=== PATIENT | female | born 1960 | race Caucasian/White ===

== ENCOUNTER → 2018-04-10 08:58 | Outpatient (CLI) | payer OTHER, SELFPAY ==
[2018-04-10 09:52] LABS: Add Manual Diff / Slide Review NO; Eosinophils Percent Auto 2.8 % (2-4); Hematocrit 38.7 % (36-46); Hemoglobin 12.6 g/dL (12.0-16.0); Lymphocytes Percent Auto 18.8 % (25-40); Mean Corpuscular HGB Conc 32.5 % (30-36); Mean Corpuscular Hemoglobin 23.7 PG (26-34); Mean Corpuscular Volume 72.9 fL (80-100); Monocytes Percent Auto 6.4 % (3-14); Neutrophils Absolute Auto 7100 /uL (3000-5900); Platelet Count 230 X10^3/uL (150-400); Red Blood Cell Count 5.31 X10^6/uL (4.0-5.2); Red Cell Distribution Width 16.8 % (11.6-14.8)
[2018-04-10 10:17] LABS: Alanine Aminotransferase 39 IU/L (9-52); Albumin 4.2 g/dL (3.5-5.0); Albumin Globulin Ratio 1.4 (1.0-2.8); Alkaline Phosphatase 103 U/L (38-126); Aspartate Aminotransferase 29 IU/L (14-36); BUN Creatinine Ratio 21.4 (6-22); Blood Urea Nitrogen 15 mg/dL (7-17); Calcium 7.4 mg/dL (8.4-10.2); Carbon Dioxide 27 mmol/L (22-32); Chloride 101 mmol/L (98-107); Estimated Glomerular Filt Rate > 60.0 mL/min (>60); Glucose 95 mg/dL (70-100); HEMOLYSIS < 15 (0-50); Potassium 3.7 mmol/L (3.4-5.1); Sodium 143 mmol/L (137-145); Total Protein 7.2 g/dL (6.3-8.2)
== END ==
PROVIDERS: Visit Provider Podiatrist
DX: Z01.818 Encounter for other preprocedural examination (principal)
CPT/HCPCS: 36415; 80053; 85025; 93005

== ENCOUNTER 2018-04-26 10:40 | Day surgery (SDC) | payer OTHER, SELFPAY ==
[2018-04-16 08:20] VITALS: BMI 33.3
[2018-04-26] VITALS (7 sets, daily range): BP systolic 113–161; BP diastolic 77–97; PULSE 69–76; RESP 14–22; TEMP 36.4–37.2; O2SAT 95–99; BMI 33.3
[2018-04-26] MEDS: LACTATED RINGERS 1,000 ML 42 ML IV (11:30)
--- NOTE | 2018-04-26 13:01 | PM.OP.1 ---
Procedure & Clinicians Procedure: Gastroc recession, left Same procedure as scheduled: Yes Indications: Painful equinus, plantar fasciitis Surgeon: Moe Fernandez Click Yes if Unassisted: Yes Anesthesia Type: General, Peripheral nerve block (popliteal block by anesthesia) and Local Operative Notes Closure Type: primary Specimen(s): none sent Applied: other (BK boot) Estimated Blood Loss (mL): 5 Procedure in detail: Operation: The patient was taken from the day surgery area back to the OR via gurney after having received a popliteal block on the left leg by anesthesia. General anesthesia was then induced. The patient was then rolled into a prone position on the OR table padded accordingly. A thigh tourniquet was placed, however, it was not utilized throughout the case. The left lower extremity was then prepped and draped in the usual sterile fashion from toes to knee. Procedure: Gastrocnemius recession, left (24090) Attention was directed toward the posterior aspect of the left distal Achilles. A longitudinal incision was placed just medial to midline, starting approximately 10 cm proximal to the Achilles insertion. Sharp and blunt dissection were utilized to the subcutaneous tissue layers, taking care to retract all vital structures and cauterized as necessary for adequate hemostasis. Once the paratenon layer was identified it was longitudinally incised. This was carefully elevated off of the underlying gastrocnemius aponeurosis. A modified [id number] slide procedure was then performed, releasing the medial and lateral 1/3 of the width of the tendon proximally, and then the central 1/3 distally. The knee was then extended in the ankle joint dorsiflexed to accommodate approximately 1-2 cm slide, with ankle dorsiflexion approximating +10? on the table. The wound was aggressively irrigated with antibiotic solution. The adjacent tendon arms were repaired with 2 Vicryl. The paratenon/mesotenon layer was then closed with a running 3 0 Vicryl. The subcu was apposed with a running 3 0 Vicryl, and the skin closed with a running subcuticular stitch of 4 0 Vicryl. Steri-Strips were placed, a postop block of 20 cc 0.5% Marcaine plain was administered around the surgical site. A light gauze compression bandage was then applied. Patient was placed then into a BK removable cast boot for protection. The patient tolerated the procedure and anesthesia without any apparent complications. She left the operating room with vital signs stable and digital perfusion intact. She will be nonweightbearing for the next week on crutches. Will be followed up in the [place] office next week. Complications: none Condition: stable Disposition: PACU Plan for aftercare: FU in Dr. Fernandez's office in one week. Appointment already has been made.
--- NOTE | 2018-04-26 13:08 | P.OP_ITS ---
Procedure & Clinicians Procedure: Gastroc recession, left Same procedure as scheduled: Yes Indications: Painful equinus, plantar fasciitis Surgeon: Moe Fernandez Click Yes if Unassisted: Yes Anesthesia Type: General, Peripheral nerve block (popliteal block by anesthesia ) and Local Operative Notes Closure Type: primary Specimen(s): none sent Applied: other (BK boot) Estimated Blood Loss (mL): 5 Procedure in detail: Operation: The patient was taken from the day surgery area back to the OR via gurney after having received a popliteal block on the left leg by anesthesia. General anesthesia was then induced. The patient was then rolled into a prone position on the OR table padded accordingly. A thigh tourniquet was placed, however, it was not utilized throughout the case. The left lower extremity was then prepped and draped in the usual sterile fashion from toes to knee. Procedure: Gastrocnemius recession, left (76133) Attention was directed toward the posterior aspect of the left distal Achilles. A longitudinal incision was placed just medial to midline, starting approximately 10 cm proximal to the Achilles insertion. Sharp and blunt dissection were utilized to the subcutaneous tissue layers, taking care to retract all vital structures and cauterized as necessary for adequate hemostasis. Once the paratenon layer was identified it was longitudinally incised. This was carefully elevated off of the underlying gastrocnemius aponeurosis. A modified kffniy-[id number] slide procedure was then performed, releasing the medial and lateral 1/3 of the width of the tendon proximally, and then the central 1/3 distally. The knee was then extended in the ankle joint dorsiflexed to accommodate approximately 1-2 cm slide, with ankle dorsiflexion approximating +10? on the table. The wound was aggressively irrigated with antibiotic solution. The adjacent tendon arms were repaired with 2 Vicryl. The paratenon/mesotenon layer was then closed with a running 3 0 Vicryl. The subcu was apposed with a running 3 0 Vicryl, and the skin closed with a running subcuticular stitch of 4 0 Vicryl. Steri-Strips were placed, a postop block of 20 cc 0.5% Marcaine plain was administered around the surgical site. A light gauze compression bandage was then applied. Patient was placed then into a BK removable cast boot for protection. The patient tolerated the procedure and anesthesia without any apparent complications. She left the operating room with vital signs stable and digital perfusion intact. She will be nonweightbearing for the next week on crutches. Will be followed up in the [place] office next week. Complications: none Condition: stable Disposition: PACU Plan for aftercare: FU in Dr. Fernandez's office in one week. Appointment already has been made.
--- NOTE | 2018-04-26 13:29 | SUR.PREOP ---
Block start time [1312] . Monitoring initiated and maintained throughout procedure. Oxygen and medications given per anesthesiologist instructions. Patient remained stable throughout procedure, no adverse reactions noted. Block end time [1321].
[2018-04-26] MEDS: CEFAZOLIN 2 GM/100 ML FROZ.PIGGY IV (13:30)
--- NOTE | 2018-04-26 14:00 | SUR.OPER ---
Prone on padded OR bed, head in foam head support, gel chest rolls, gel pad under right knee, left leg draped free, toes free of pressure, arms secured on padded arm boards bent toward head of bed. Safety belt at back
--- NOTE | 2018-04-26 14:13 | PM.PROC.1 ---
Procedures Date/Time Date of procedure: 04/26/18 Time of procedure: 13:10 General Procedure description: Ultrasound guided popliteal sciatic nerve block for post op pain control after left gastroc lengthening by Dr. Fernandez. Risk and benefits of procedure discussed with patient. ASA monitoring applied to patient. Oxygen given via nasal cannula. 0.5 mg Versed and 50 mcg fentanyl given for procedural sedation. Skin site was prepped with chlorhexidine and allowed to fully dry. Sterile gloves, mask, hat and probe cover were used to maintain sterility. 2% lidocaine and 30ga needle was used to make a small skin wheal at needle insertion site. Under ultrasound guidance, a 21ga 100mm [place] needle was directed near the division of the sciatic nerve into tibial and peroneal nerve in the popliteal fossa (lateral approach). Patient reported no parasthesias. After negative aspiration, 20 mL 0.5% ropivicaine and 10mg dexamethasone were injected around sciatic nerve. Patient tolerated procedure well.
== END 2018-04-26 16:00 | disposition home or self-care (01) ==
PROVIDERS: Visit Provider Podiatrist
PROC: (CPT 27687; principal; 2018-04-26 12:30)
DX: M72.2 Plantar fascial fibromatosis (principal); M21.6X2 Other acquired deformities of left foot; G89.18 Other acute postprocedural pain
CPT/HCPCS: 27687; 64450; J0330; J0690; J1100; J1885; J2250; J2405; J2704; J3010

== ENCOUNTER 2021-01-12 17:34 | Emergency (ER) | payer OTHER, SELFPAY ==
[2021-01-12 17:46] VITALS: BP 182/86; PULSE 83; RESP 18; TEMP 36.7; O2SAT 98
--- NOTE | 2021-01-12 17:48 | DI.US.S_ITS ---
PROCEDURE: US PERIPH VENOUS LOW EXTREM RT INDICATIONS: rt lower leg swelling/pain, hx of dvt TECHNIQUE: Real-time imaging, as well as color and pulse Doppler interrogation, were performed of the lower extremity deep veins from the inguinal ligament to the popliteal fossa. COMPARISON: None. FINDINGS: The common femoral, femoral and popliteal veins are normally compressible, and free of intraluminal thrombus. Color and pulse Doppler demonstrate normal phasic intraluminal flow. There is normal augmentation response to distal compression maneuver. IMPRESSION: Negative for deep venous thrombosis. Dictated by: Mauro Rivera M.D. on 01/12/2021 at 17:19 Approved by: Mauro Rivera M.D. on 01/12/2021 at 17:20
--- NOTE | 2021-01-12 17:58 | ED.LOWEXIN ---
HPI - Extremity Injury (Lower) General Chief Complaint: Extremity Injury, Lower Stated Complaint: rt leg swelling, thinks blood clot Time Seen by Provider: 01/12/21 17:54 Source: patient Mode of arrival: Ambulatory Limitations: no limitations History of Present Illness HPI Narrative: 60-year-old female nonsmoker with a history of left lower extremity DVT after air travel a few years ago presents with a chief complaint of mild pain and swelling in her right calf in the absence of redness, warmth or injury. She has had no fever or chills. She states that she recently had a long distance flight and despite taking low-dose aspirin in preparation for the flight she has developed some swelling in her calf. She denies any pain in her thigh. She has had no chest pain or shortness of breath. She is not dizzy nor weak or lightheaded. Severity: mild Relieving factors: rest Exacerbating factors: movement and palpation Associated symptoms: swelling Other symptoms: none Related Data Home Medications Medication Instructions Recorded Confirmed albuterol sulfate [ProAir HFA] 1 puff INHALATION Q4-6H PRN 04/16/18 04/26/18 atorvastatin 10 mg PO DAILY 04/16/18 04/26/18 diltiazem HCl 240 mg PO DAILY 04/16/18 04/26/18 fexofenadine [Nallely Allergy] 180 mg PO DAILY 04/16/18 04/26/18 fluticasone propionate [Flonase 1 spray INTRANASAL DAILY 04/16/18 04/26/18 Allergy Relief] hydrochlorothiazide 12.5 mg PO DAILY 04/16/18 04/26/18 hydrocodone-acetaminophen 1 - 2 tab PO Q4-6H PRN 04/16/18 04/16/18 scopolamine base 1 patch TRANSDERMAL Q3D PRN 04/16/18 04/26/18 Allergies Allergy/AdvReac Type Severity Reaction Status Date / Time No Known Drug Allergies Allergy Verified 04/25/18 16:21 Review of Systems Constitutional Constitutional: Denies chills, Denies fatigue, Denies fever(s), Denies frequent falls, Denies lethargy and Denies weakness Eyes Eyes: Denies change in vision, Denies eye discharge, Denies irritation and Denies loss of vision ENT Ears, Nose, Mouth, and Throat: Denies change in voice, Denies dizziness, Denies neck pain, Denies sore throat and Denies throat swelling Cardiovascular Cardiovascular: Denies chest pain, Denies irregular heart rhythm, Reports leg edema, Denies lightheadedness, Denies palpitations, Denies dyspnea, Denies dyspnea on exertion and Denies orthopnea Respiratory Respiratory: Denies cough, Denies dyspnea, Denies dyspnea on exertion and Denies wheezing Gastrointestinal Gastrointestinal: Denies abdominal pain, Denies change in bowel habits, Denies diarrhea, Denies nausea and Denies vomiting Musculoskeletal Musculoskeletal: Denies neck pain and Denies numbness Integumentary/Breasts Skin/Breast: Denies pruritus, Denies erythema, Denies rash, Reports skin pain, Reports skin swelling and Denies wounds Neurologic Neurologic: Denies behavioral changes, Denies confusion, Denies dizziness, Denies frequent falls, Denies loss of vision, Denies numbness and Denies weakness Psychiatric Psychiatric: Denies anxiety, Denies behavioral changes, Denies confusion, Denies depression, Denies homicidal ideation and Denies suicidal ideation Endocrine Endocrine: Denies fatigue, Denies flushing and Denies palpitations Hematologic/Lymphatic Hematologic/Lymphatic: Denies easy bruising Allergic/Immunologic Allergic/Immunologic: Denies urticaria, Denies throat swelling and Denies wheezing Patient History Medical History DVT (deep vein thrombosis) in High cholesterol HTN (hypertension) Hypothyroid Left wrist fracture Osteoarthritis Surgical History History of arthroscopic knee surgery History of tonsillectomy and adenoidectomy Hx of cholecystectomy Social History household members: spouse Smoking Status: Never smoker alcohol intake: current Smoking Status: Never smoker Substance Use Type: does not use Exam Narrative Exam Narrative: GEN: AOx3 and in mild distress EYES: Pupils are equal, round, and reactive to light and accommodation. Extraoccular muscles are intact bilaterally. There is no subconjunctival hemorrhage or exudate. CHEST: Lungs are clear to auscultation bilaterally and free of wheezes, rales, or rhonchi. Heart rate is regular rhythm, there are no murmurs, clicks, rubs, or gallops. There is no chest wall tenderness. ABD: Abdomen is soft and nontender. There is no guarding or rebound. Bowel sounds are normal in all 4 quadrants. There is no mass or organomegaly. EXT: Mild right calf swelling a, no significant pain on palpation, redness, warmth. No medial thigh pain or tenderness Full painless ROM of all extremities with no loss of sensation or strength. SKIN: Warm, pink, and dry. No erythema or rash Initial Vital Signs Initial Vital Signs: Vital Signs Temperature 98.1 F 01/12/21 17:46 Pulse Rate 83 01/12/21 17:46 Respiratory Rate 18 01/12/21 17:46 Blood Pressure 182/86 H 01/12/21 17:46 Pulse Oximetry 98 01/12/21 17:46 Course Orders Ordered: ED Orders 01/12/21 17:48 US perip venous low extrem rt Stat Vital Signs Vital signs: Vital Signs - 8 hr 01/12/21 17:46 Temperature 98.1 F Pulse Rate 83 Respiratory Rate 18 Blood Pressure 182/86 H Pulse Oximetry 98 MDM - Extremity Injury (Lower) Imaging Data US - DVT: Radiologist's Impression: [address] [id number] ReportSigned Patient: Winnie Real KMR#: [id number]: 1960Acct:[id number]/Sex: 60 / FDate of Service: 01/12/21Loc: EDAccession Number: [id number] Procedure: [facility] venous low extrem rt Ordering Provider: Monet Rosa D.O. PROCEDURE: PERIP VENOUS LOW EXTREM RT INDICATIONS: rt lower leg swelling/pain, hx of dvt TECHNIQUE: Real-time imaging, as well as color and pulse Doppler interrogation, were performed of the lower extremity deep veins from the inguinal ligament to the popliteal fossa. COMPARISON: None. FINDINGS: The common femoral, femoral and popliteal veins are normally compressible, and free of intraluminal thrombus. Color and pulse Doppler demonstrate normal phasic intraluminal flow. There is normal augmentation response to distal compression maneuver. IMPRESSION: Negative for deep venous thrombosis. Dictated by: Mauro Rivera M.D. on 01/12/2021 at 17:19 Approved by: Mauro Rivera M.D. on 01/12/2021 at 17:20 [facility] Narrative Medical decision making narrative: Patient with prior DVTs concerned that she has another after developing some right calf swelling after a flight. There is no redness, warmth, injury or fever. Ultrasound is negative for DVT. Infection considered but thought unlikely given lack of redness, warmth, pain on palpation or fever. There is a possibility of a small distal DVT that did not show up on the ultrasound, we discussed elevating her leg, use of compression socks, initiation of aspirin, follow-up for repeat ultrasound in 5-7 days. She understands return precautions and has had questions answered to her apparent satisfaction Discharge Plan Departure Patient Disposition: Home Clinical Impression: Right calf pain Instructions: DI for Leg Pain Activity Restrictions/Additional Instructions: *You have been diagnosed with [right calf pain, your ultrasound is reassuring and does not demonstrate DVT] *What to do: *Take medications as directed: Please start taking a baby aspirin daily and be sure to elevate your calf as much as possible *Follow up with your primary care provider in 5-7 days, call for an appointment. Let them know you were seen in the Emergency Department and that we ask that you be seen in follow up. We typically would encourage a repeat ultrasound at that point to rule out the evolution of an underlying clot. *Return to ER if you should have any new, worsening or concerning symptoms, such as [increasing pain, redness, swelling, fever, chills, chest pain or shortness of breath] Prescriptions: No Action atorvastatin 10 mg Tablet 10 mg PO DAILY RF: 0 hydrocodone-acetaminophen 5-325 mg Tablet 1 - 2 tab PO Q4-6H PRN (Reason: pain) RF: 0 diltiazem HCl 240 mg Capsule,Extended Release 24 Hr 240 mg PO DAILY RF: 0 fexofenadine [Nallely Allergy] 180 mg Tablet 180 mg PO DAILY RF: 0 hydrochlorothiazide 12.5 mg Capsule 12.5 mg PO DAILY RF: 0 scopolamine base 1 mg over 3 days Patch 3 Day 1 patch TRANSDERMAL Q3D PRN (Reason: Nausea) RF: 0 albuterol sulfate [ProAir HFA] 90 mcg/actuation Hfa Aerosol Inhaler 1 puff INHALATION Q4-6H PRN (Reason: SOB) RF: 0 fluticasone propionate [Flonase Allergy Relief] 50 mcg/actuation [place],Suspension 1 spray INTRANASAL DAILY RF: 0 Referrals: Sandy Powell PA-C [Primary Care Provider] -
== END 2021-01-12 21:13 | disposition home or self-care (01) ==
PROVIDERS: Emergency Provider Emergency Medicine; PCP Physician Assistant Medical
DX: M79.661 Pain in right lower leg (principal)
CPT/HCPCS: 93971; 99283

== ENCOUNTER 2021-01-14 12:22 | Emergency (ER) | payer BC, OTHER, SELFPAY ==
[2021-01-14 12:28] VITALS: BP 180/88; PULSE 82; RESP 23; TEMP 36.6; O2SAT 97; BMI 34.0
[2021-01-14 12:30] VITALS: PULSE 79; O2SAT 97
[2021-01-14 12:49] VITALS: BP 180/77; PULSE 67; RESP 29; O2SAT 97
--- NOTE | 2021-01-14 12:53 | ED_ITS ---
HPI - General Adult General Chief complaint: Hypertension Stated complaint: elevated blood pressure, since yesterday Time Seen by Provider: 01/14/21 12:53 Source: patient Mode of arrival: Ambulatory Limitations: no limitations History of Present Illness HPI narrative: 60-year-old female here for evaluation of elevated blood pressure. She does have a history of high blood pressure. She has been taking her medications as directed and actually took an extra dose of her hydrochlorothiazide today. This made a total of 25 mg of hydrochlorothiazide. She was recently seen in this emergency department for right lower extremity swelling. She has had a DVT in the past. She states the workup for that was unremarkable. The pain in the right lower extremity has resolved however she still does have some swelling. She is not having any chest pain or shortness of breath. Yesterday started feeling somewhat lightheaded and took her blood pressure and was elevated. She took multiple times yesterday and even multiple times today and was still elevated so she came in the emergency department for evaluated Related Data Home Medications Medication Instructions Recorded Confirmed albuterol sulfate [ProAir HFA] 1 puff INHALATION Q4-6H PRN 04/16/18 04/26/18 atorvastatin 10 mg PO DAILY 04/16/18 04/26/18 diltiazem HCl 240 mg PO DAILY 04/16/18 04/26/18 fexofenadine [Nallely Allergy] 180 mg PO DAILY 04/16/18 04/26/18 fluticasone propionate [Flonase 1 spray INTRANASAL DAILY 04/16/18 04/26/18 Allergy Relief] hydrochlorothiazide 12.5 mg PO DAILY 04/16/18 04/26/18 hydrocodone-acetaminophen 1 - 2 tab PO Q4-6H PRN 04/16/18 04/16/18 scopolamine base 1 patch TRANSDERMAL Q3D PRN 04/16/18 04/26/18 Allergies Allergy/AdvReac Type Severity Reaction Status Date / Time No Known Drug Allergies Allergy Verified 01/14/21 12:34 Review of Systems Constitutional Constitutional: Denies fever(s) and Denies headache(s) Comments: Lightheaded Eyes Eyes: Denies blurry vision and Denies change in vision ENT Ears, Nose, Mouth, and Throat: Denies headache(s) Cardiovascular Cardiovascular: Denies chest pain and Denies dyspnea Respiratory Respiratory: Denies dyspnea Gastrointestinal Gastrointestinal: Denies abdominal pain, Denies nausea and Denies vomiting Genitourinary Genitourinary: Denies dysuria Genitourinary: Denies dysuria Musculoskeletal Musculoskeletal: Denies arthralgias and Denies myalgias Integumentary/Breasts Skin/Breast: Denies lesions and Denies rash Neurologic Neurologic: Denies behavioral changes and Denies headache(s) Psychiatric Psychiatric: Denies behavioral changes Hematologic/Lymphatic On Anticoagulants: No Allergic/Immunologic Allergic/Immunologic: Denies urticaria Patient History Medical History DVT (deep vein thrombosis) in High cholesterol HTN (hypertension) Hypothyroid Left wrist fracture Osteoarthritis Surgical History History of arthroscopic knee surgery History of tonsillectomy and adenoidectomy Hx of cholecystectomy Social History household members: spouse Smoking Status: Never smoker alcohol intake: current Smoking Status: Never smoker Substance Use Type: does not use Exam Initial Vital Signs Initial Vital Signs: Vital Signs Temperature 97.9 F 01/14/21 12:28 Pulse Rate 82 01/14/21 12:28 Respiratory Rate 23 01/14/21 12:28 Blood Pressure 180/88 H 01/14/21 12:28 Pulse Oximetry 97 01/14/21 12:28 Const General: cooperative and comfortable Limitations: mental status not altered HENMT Head: normal to inspection and normocephalic Resp Effort & Inspection: normal respiratory effort Auscultation: clear to auscultation bilaterally Cardio Rate: regular rate Rhythm: regular rhythm GI Inspection: non-distended Palpation: soft and No tender Skin Lesions: no lesions Rashes: no rashes Neuro General: patient alert, patient awake and patient oriented x3 Cognition: normal cognition Speech: speech normal Gait: normal gait Extrem General: normal to inspection and capillary refill normal Psych Appearance: grossly normal and well kempt Course Orders Ordered: ED Orders 01/14/21 12:35 EKG-12 Lead Stat 01/14/21 12:53 Complete Blood Count AUTO DIFF Stat Comprehensive Metabolic Panel Stat Lipase Stat NT-proBNP (BNP-Adult 18+) Stat Troponin & CK Cardiac Panel Stat 01/14/21 12:54 XR chest 1V Stat Vital Signs Vital signs: Vital Signs - 8 hr 01/14/21 12:28 01/14/21 12:30 01/14/21 12:49 Temperature 97.9 F Pulse Rate 82 79 67 Respiratory Rate 23 29 H Blood Pressure 180/88 H 180/77 H Pulse Oximetry 97 97 97 01/14/21 13:00 01/14/21 13:30 01/14/21 14:00 Temperature Pulse Rate 64 66 64 Respiratory Rate 22 27 H 21 Blood Pressure Pulse Oximetry 95 93 93 Medical Decision Making Lab Data Lab results reviewed: Yes I reviewed the patient's lab results. Result diagrams: 01/14/21 12:53 01/14/21 12:53 Labs: Lab Results 01/14/21 01/14/21 Range/Units 12:53 12:53 WBC 9.2 (4.5-11.0) X10^3/uL RBC 5.32 H (4.0-5.2) X10^6/uL Hgb 13.2 (12.0-16.0) g/dL Hct 40.6 (36-46) % MCV 76.4 L (80-100) fL MCH 24.8 L (26-34) PG MCHC 32.5 (30-36) % RDW 15.9 H (11.6-14.8) % Plt Count 233 (150-400) X10^3/uL Neut % (Auto) 65.2 (50-75) % Lymph % (Auto) 23.1 L (25-40) % [place] % (Auto) 7.7 (3-14) % Eos % (Auto) 2.9 (2-4) % Baso % (Auto) 1.1 (0-2) % Neut # (Auto) 6000 (8633-6786) /uL Lymph # (Auto) 2100 (7204-7166) /uL [place] # (Auto) 700 (0-900) /uL Eos # (Auto) 300 (0-450) /uL Baso # (Auto) 100 (0-100) /uL Sodium 140 (137-145) mmol/L Potassium 3.3 L (3.4-5.1) mmol/L Chloride 102 (98-107) mmol/L Carbon Dioxide 28 (22-32) mmol/L BUN 13 (7-17) mg/dL Creatinine 0.74 (0.52-1.04) mg/dL Estimated GFR > 60.0 (>60) mL/min BUN/Creatinine Ratio 17.6 (6-22) Glucose 109 H (70-100) mg/dL Calcium 7.8 L (8.4-10.2) mg/dL Total Bilirubin 0.9 (0.2-1.3) mg/dL AST 32 (14-36) IU/L ALT 31 (<35) IU/L Alkaline Phosphatase 131 H (38-126) U/L Total Creatine Kinase 104 (30-135) U/L CK-MB (CK-2) 0.27 (<2.37) ng/mL CK-MB (CK-2) Rel Index 0.3 L (1.5-5.0) % Troponin I < 0.012 (0.01-0.034) ng/mL NT-Pro-B Natriuret Pep 92 (<125) pg/mL Total Protein 7.6 (6.3-8.2) g/dL Albumin 4.5 (3.5-5.0) g/dL Globulin 3.1 (1.7-4.1) g/dL Albumin/Globulin Ratio 1.5 (1.0-2.8) Lipase 62 (23-300) U/L Imaging Data Chest x-ray: Radiologist's Impression: [address] [id number] ReportSigned Patient: Winnie Real KMR#: [id number]: 1960Acct:[id number]/Sex: 60 / FDate of Service: 01/14/21Loc: EDAccession Number: [id number] Procedure: XR chest 1V Ordering Provider: Chavo Rivera D.O. PROCEDURE: XR CHEST 1V INDICATIONS: Hypertension shortness of breath TECHNIQUE: One view of the chest was acquired. COMPARISON: None. FINDINGS: Surgical changes and devices: None. Lungs and pleura: Lungs are clear. No pleural effusions or pneumothorax. Mediastinum: Mediastinal contours appear normal. Heart size is enlarged. Bones and chest wall: No suspicious bony lesions. Overlying soft tissues appear unremarkable. IMPRESSION: No acute cardiopulmonary pathology. Dictated by: Radhames Lim M.D. on 01/14/2021 at 13:28 Approved by: Radhames Lim M.D. on 01/14/2021 at 13:28 ECG Data Attestation: I personally reviewed and interpreted this ECG as follows: Prior ECG tracings: not available for review Interpretation: Sinus rhythm Ventricular rate is 64 Normal axis Normal QRS Normal QTC No ST T wave changes MDM Narrative Medical decision making narrative: Labs EKG chest x-ray all unremarkable. There are no signs of any end-organ dysfunction from her high blood pressure. I discussed blood pressure with the patient. We did discuss things to return to the emergency department for. Discussed how she should take her blood pressure at home. She is going to contact her primary provider for follow-up. She will take an extra dose of her hydrochlorothiazide as needed. I feel patient be sa chung discharged home without further workup here in the ER. She expressed understanding and agreement this plan. Discharge Plan Departure Patient Disposition: Home Clinical Impression: Hypertension Instructions: DI for High Blood Pressure Activity Restrictions/Additional Instructions: Continue to take your blood pressure as directed. Continue all of your medications as directed as well. Take your blood pressure at home like we discussed. Return to the emergency department for any new or worsening symptoms Prescriptions: No Action atorvastatin 10 mg Tablet 10 mg PO DAILY RF: 0 hydrocodone-acetaminophen 5-325 mg Tablet 1 - 2 tab PO Q4-6H PRN (Reason: pain) RF: 0 diltiazem HCl 240 mg Capsule,Extended Release 24 Hr 240 mg PO DAILY RF: 0 fexofenadine [Nallely Allergy] 180 mg Tablet 180 mg PO DAILY RF: 0 hydrochlorothiazide 12.5 mg Capsule 12.5 mg PO DAILY RF: 0 scopolamine base 1 mg over 3 days Patch 3 Day 1 patch TRANSDERMAL Q3D PRN (Reason: Nausea) RF: 0 albuterol sulfate [ProAir HFA] 90 mcg/actuation Hfa Aerosol Inhaler 1 puff INHALATION Q4-6H PRN (Reason: SOB) RF: 0 fluticasone propionate [Flonase Allergy Relief] 50 mcg/actuation [place] 1 spray INTRANASAL DAILY RF: 0 Referrals: Sandy Powell PA-C [Primary Care Provider] -
--- NOTE | 2021-01-14 12:57 | PC.NURSE ---
pt reports feeling like her BP was high yesterday around noon. has been keeping a log of readings. called NATALIA Powell who advised her to be seen in ED. Takes HCTZ 12.5mg and decided to take a 2nd tab this morning to see if it would improve her BP. Pt concerned for her diastolic being over 110-120. HR 60 NSR. Has been experiencing some R calf swelling as well and has US R/O DVT. Swelling appears minimal and pt states the pain in her calf has gone away. denies CP, SOB, NVD. IV placed and labs drawn. awaiting further MD assessment.
[2021-01-14 13:00] VITALS: PULSE 64; RESP 22; O2SAT 95
[2021-01-14 13:02] LABS: Add Manual Diff / Slide Review NO; Basophils Absolute Auto 100 /uL (0-100); Basophils Percent Auto 1.1 % (0-2); Eosinophils Absolute Auto 300 /uL (0-450); Eosinophils Percent Auto 2.9 % (2-4); Hematocrit 40.6 % (36-46); Hemoglobin 13.2 g/dL (12.0-16.0); Lymphocytes Absolute Auto 2100 /uL (1100-4500); Lymphocytes Percent Auto 23.1 % (25-40); Mean Corpuscular HGB Conc 32.5 % (30-36); Mean Corpuscular Hemoglobin 24.8 PG (26-34); Mean Corpuscular Volume 76.4 fL (80-100); Monocytes Absolute Auto 700 /uL (0-900); Monocytes Percent Auto 7.7 % (3-14); Neutrophils Absolute Auto 6000 /uL (1500-7000); Neutrophils Percent Auto 65.2 % (50-75); Platelet Count 233 X10^3/uL (150-400); Red Blood Cell Count 5.32 X10^6/uL (4.0-5.2); Red Cell Distribution Width 15.9 % (11.6-14.8); White Blood Cell Count 9.2 X10^3/uL (4.5-11.0)
[2021-01-14 13:20] LABS: Alanine Aminotransferase 31 IU/L (<35); Albumin 4.5 g/dL (3.5-5.0); Albumin Globulin Ratio 1.5 (1.0-2.8); Alkaline Phosphatase 131 U/L (38-126); Aspartate Aminotransferase 32 IU/L (14-36); BUN Creatinine Ratio 17.6 (6-22); Bilirubin Total 0.9 mg/dL (0.2-1.3); Blood Urea Nitrogen 13 mg/dL (7-17); Calcium 7.8 mg/dL (8.4-10.2); Carbon Dioxide 28 mmol/L (22-32); Chloride 102 mmol/L (98-107); Creatine Kinase 104 U/L (30-135); Estimated Glomerular Filt Rate > 60.0 mL/min (>60); Globulin 3.1 g/dL (1.7-4.1); Glucose 109 mg/dL (70-100); HEMOLYSIS < 15 (0-50); Lipase 62 U/L (23-300); Potassium 3.3 mmol/L (3.4-5.1); Sodium 140 mmol/L (137-145); Total Protein 7.6 g/dL (6.3-8.2)
[2021-01-14 13:30] VITALS: PULSE 66; RESP 27; O2SAT 93
[2021-01-14 13:32] LABS: NT-proBNP (BNP-Adult 18+) 92 pg/mL (<125); Troponin I < 0.012 ng/mL (0.01-0.034)
[2021-01-14 13:35] LABS: CKMB % Relative Index 0.3 % (1.5-5.0); Creatine Kinase MB 0.27 ng/mL (<2.37)
[2021-01-14 14:00] VITALS: PULSE 64; RESP 21; O2SAT 93
== END 2021-01-14 14:09 | disposition home or self-care (01) ==
PROVIDERS: Emergency Provider Emergency Medicine; PCP Physician Assistant Medical
DX: I10 Essential (primary) hypertension (principal); M79.89 Other specified soft tissue disorders
CPT/HCPCS: 36415; 71045; 80053; 82550; 82553; 83690; 83880; 84484; 85025; 93005; 99283; 99284

== ENCOUNTER → 2021-03-19 08:04 | Outpatient (CLI) | payer BC, OTHER, SELFPAY ==
--- NOTE | 2021-03-19 | DI.MG.S_ITS ---
BILATERAL DIGITAL SCREENING MAMMOGRAM 3D/2D WITH CAD: 03/19/2021 CLINICAL: Routine screening. Family history of breast cancer. Comparison is made to exams dated: 02/21/2013 mammogram, 10/11/2016 mammogram, and 01/10/2019 mammogram - [facility]. There are scattered fibroglandular elements in both breasts. Current study was also evaluated with a Computer Aided Detection (CAD) system. No significant masses, calcifications, or other findings are seen in either breast. There has been no significant interval change. IMPRESSION: NEGATIVE There is no mammographic evidence of malignancy. A 1 year screening mammogram is recommended. This exam was interpreted at Station ID: [id number]. NOTE: For mammograms, a report in lay terms will be sent to the patient. Approximately 15% of breast malignancies will not be visualized mammographically. In the management of a palpable breast mass, a negative mammogram must not discourage biopsy of a clinically suspicious lesion. Electronically Signed By: Wojciech camacho/jeanne:03/21/2021 07:25:37 letter sent: Normal Exam ACR BI-RADS Category 1: Negative [id number]
== END ==
PROVIDERS: PCP Physician Assistant Medical; Referring Provider Physician Assistant Medical; Visit Provider Physician Assistant Medical
DX: Z12.31 Encounter for screening mammogram for malignant neoplasm of breast (principal)
CPT/HCPCS: 77063; 77067

== ENCOUNTER → 2021-04-27 13:09 | Outpatient (CLI) | payer BC, OTHER, SELFPAY ==
--- NOTE | 2021-04-27 | DI.US.S_ITS ---
LIMITED ULTRASOUND OF RIGHT BREAST: 04/27/2021 CLINICAL: Palpable right breast lump. Comparison is made to exams dated: 04/27/2021 mammogram, 03/19/2021 mammogram - [facility], and 01/10/2019 mammogram - [facility]. Color flow ultrasound of the right breast was performed. Fernandes scale images of the real-time examination were reviewed. There is a benign 2.3 cm x 2 cm x 1.1 cm oval mass with a circumscribed margin in the right breast at 8 o'clock posterior depth 8 cm from the nipple. This oval mass is hyperechoic and isoechoic with a well-defined boundary and no posterior acoustic shadowing or enhancement. This correlates as palpated. IMPRESSION: BENIGN There is no sonographic evidence of malignancy. The 2.3 cm x 2 cm x 1.1 cm oval mass in the right breast is consistent with a lipoma and is benign. A 1 year screening mammogram is recommended. Future imaging is recommended as follows: 03/20/2022 screening mammogram. This exam was interpreted at Station ID: [id number]. Electronically Signed By: Nba arana/jeanne:04/27/2021 15:45:16 letter sent: Clinical Evaluation Ultrasound BI-RADS: 2 Benign
--- NOTE | 2021-04-27 | DI.MG.S_ITS ---
UNILATERAL RIGHT DIGITAL DIAGNOSTIC MAMMOGRAM 3D/2D: 04/27/2021 CLINICAL: Right breast lump. Comparison is made to exams dated: 03/19/2021 mammogram - [facility], 01/10/2019 mammogram, and 10/11/2016 mammogram - [facility]. There are scattered fibroglandular elements in right breast. No significant masses, calcifications, or other findings are seen in the breast. IMPRESSION: INCOMPLETE: NEEDS ADDITIONAL IMAGING EVALUATION There is no abnormality seen in the right breast to correspond with the palpable abnormality. Targeted ultrasound is recommended for further evaluation, which will be scheduled immediately following this exam. Future imaging is recommended as follows: 03/20/2022 screening mammogram. This exam was interpreted at Station ID: [id number]. NOTE: For mammograms, a report in lay terms will be sent to the patient. Approximately 15% of breast malignancies will not be visualized mammographically. In the management of a palpable breast mass, a negative mammogram must not discourage biopsy of a clinically suspicious lesion. Electronically Signed By: Nba arana/jeanne:04/27/2021 15:43:03 ACR BI-RADS Category 0: Incomplete [id number]
== END ==
PROVIDERS: PCP Physician Assistant Medical; Referring Provider Nurse Practitioner Family; Visit Provider Nurse Practitioner Family
DX: N63.13 Unspecified lump in the right breast, lower outer quadrant (principal); R92.2 Inconclusive mammogram
CPT/HCPCS: 76642; 77065; G0279

== ENCOUNTER 2021-05-14 10:33 | Emergency (ER) | payer BC, OTHER, SELFPAY ==
[2021-05-14 10:35] VITALS: BP 151/66; PULSE 94; RESP 20; TEMP 36.8; O2SAT 95
--- NOTE | 2021-05-14 10:47 | DI.RAD.S_ITS ---
PROCEDURE: XR CHEST 1V INDICATIONS: cough TECHNIQUE: One view of the chest was acquired. COMPARISON: [facility], CR, XR CHEST 1V, 01/14/2021, 13:03. FINDINGS: Surgical changes and devices: None. Lungs and pleura: Mild patchy bilateral perihilar opacity. No pleural effusions or pneumothorax. Mediastinum: Mediastinal contours appear normal. Heart size is normal. Bones and chest wall: No suspicious bony lesions. Overlying soft tissues appear unremarkable. IMPRESSION: Mild atypical pneumonia. Dictated by: Aileen López M.D. on 05/14/2021 at 10:03 Approved by: Aileen López M.D. on 05/14/2021 at 10:04
--- NOTE | 2021-05-14 10:53 | ED.SOB ---
HPI - SOB/Dyspnea General Chief Complaint: Upper Respiratory Symptoms Stated Complaint: abnormal EKG-sent by [facility] Time Seen by Provider: 05/14/21 10:37 History of Present Illness HPI Narrative: 60-year-old female nonsmoker with history of asthma, hypertension and hyperlipidemia presents from an outside walk-in clinic for evaluation of an abnormal EKG. She presented to them with a chief complaint of a dry and hacking cough that has been rather persistent for much of the week. She denies any chest pain and is not weak nor dizzy or lightheaded. She denies any sputum production. She denies nausea, vomiting or diarrhea. She denies any unexplained diaphoresis. She denies any worsening exercise intolerance. She has had no headache, runny nose or sore throat. She denies any exposure to COVID. She had an EKG performed which showed a few PVCs and was sent for evaluation. Related Data Home Medications Medication Instructions Recorded Confirmed albuterol sulfate 90 mcg/actuation 1 puff INHALATION Q4-6H PRN 04/16/18 04/26/18 aerosol inhaler (ProAir HFA) atorvastatin 10 mg tablet 10 mg PO DAILY 04/16/18 04/26/18 diltiazem HCl 240 mg capsule,24 240 mg PO DAILY 04/16/18 04/26/18 hr,extended release fexofenadine 180 mg tablet 180 mg PO DAILY 04/16/18 04/26/18 (Nallely Allergy) fluticasone propionate 50 1 spray INTRANASAL DAILY 04/16/18 04/26/18 mcg/actuation nasal spray,suspension (Flonase Allergy Relief) hydrochlorothiazide 12.5 mg capsule 12.5 mg PO DAILY 04/16/18 04/26/18 hydrocodone 5 mg-acetaminophen 325 1 - 2 tab PO Q4-6H PRN 04/16/18 04/16/18 mg tablet scopolamine base 1 mg over 3 days 1 patch TRANSDERMAL Q3D PRN 04/16/18 04/26/18 transdermal patch Previous Rx's Medication Instructions Recorded benzonatate 100 mg capsule 100 mg PO TID PRN #14 cap 05/14/21 (Tesnette Chávez) doxycycline hyclate 100 mg tablet 100 mg PO BID #20 tab 05/14/21 prednisone 10 mg tablet See Rx Instructions .ROUTE 05/14/21 .COMPLEX #30 tab Allergies Allergy/AdvReac Type Severity Reaction Status Date / Time No Known Drug Allergies Allergy Verified 01/14/21 12:34 Review of Systems Review of Systems Narrative: GENERAL: Denies chills, fatigue, malaise, fever, sweats. HEENT: Denies sinus pain, ear pain, sore throat, difficulty swallowing, dizziness. RESPIRATORY: See HPI CARDIOVASCULAR: Denies chest pain, palpitations, orthopnea, edema, GASTROINTESTINAL: Denies nausea, vomiting, abdominal pain, diarrhea, constipation, melena. : Denies dysuria, frequency, incontinence, hematuria, urinary retention. MUSCULOSKELETAL: denies weakness, joint pain, or bony pain SKIN: Denies rash, skin lesions, or other NEUROLOGIC: Denies weakness, headache, numbness, change in speech, confusion, seizures, incoordination. PSYCHIATRIC: No concerning psychosocial issues. 12 point review of systems is negative except for those stated above Patient History Medical History DVT (deep vein thrombosis) in High cholesterol HTN (hypertension) Hypothyroid Left wrist fracture Osteoarthritis Surgical History History of arthroscopic knee surgery History of tonsillectomy and adenoidectomy Hx of cholecystectomy Social History household members: spouse Smoking Status: Never smoker alcohol intake: current Smoking Status: Never smoker Substance Use Type: does not use Exam Narrative Exam Narrative: GENERAL: [60] year old patient appears stated age. Well-developed patient, in mild distress. HEAD: Atraumatic. Normocephalic. EYES: Pupils equal round and reactive. Extraocular motions intact. No scleral icterus. No injection or drainage. ENT: Nose without bleeding, purulent drainage. Throat without erythema, tonsillar hypertrophy or exudate. Airway patent. NECK: Trachea midline. Non tender CARDIOVASCULAR: Regular rate and rhythm without murmurs, gallops, or rubs. RESPIRATORY: Deep breath induces cough, dry and hacking, expiratory wheeze, no rales or rhonchi noted. Pain on palp of anterior chest GASTROINTESTINAL: Abdomen soft, non-tender, nondistended. EXTREMITIES: No edema or joint tenderness. BACK: Nontender without deformity or crepitance. No flank tenderness. NEURO: AOx3. SKIN: No rash or erythema of visible areas Initial Vital Signs Initial Vital Signs: Vital Signs Temperature 98.3 F 05/14/21 10:35 Pulse Rate 94 H 05/14/21 10:35 Respiratory Rate 20 05/14/21 10:35 Blood Pressure 151/66 H 05/14/21 10:35 Pulse Oximetry 95 05/14/21 10:35 Course Orders Ordered: ED Orders 05/14/21 10:44 EKG-12 Lead Stat 05/14/21 10:45 COVID19 -Nasal swab/Pre-Proc Stat 05/14/21 10:47 XR chest 1V Stat Discontinued Medications Albuterol/Ipratropium (Albuterol/Ipratropium 3 Ml Ampul) 3 ml INH NOW ONE Stop: 05/14/21 11:25 Last Admin: 05/14/21 11:35 Dose: 3 ml Documented by: KENTON Prednisone (Prednisone 20 Mg Tablet) 60 mg PO NOW ONE Stop: 05/14/21 11:16 Last Admin: 05/14/21 11:35 Dose: 60 mg Documented by: KENTON Vital Signs Vital signs: Vital Signs - 8 hr 05/14/21 10:35 05/14/21 11:51 Temperature 98.3 F Pulse Rate 94 H 60 Respiratory Rate 20 17 Blood Pressure 151/66 H 143/60 H Pulse Oximetry 95 96 MDM - SOB/Dyspnea Lab Data Labs: Lab Results 05/14/21 Range/Units 10:45 SARS-CoV-2 (PCR) Negative (Negative) Imaging Data Chest x-ray: Radiologist's Impression: [address] [id number] ReportSigned Patient: Winnie Real KMR#: [id number]: 1960Acct:[id number]/Sex: 60 / FDate of Service: 05/14/21Loc: EDAccession Number: [id number] Procedure: XR chest 1V Ordering Provider: Kyaw Adams D.O. PROCEDURE: XR CHEST 1V INDICATIONS: cough TECHNIQUE: One view of the chest was acquired. COMPARISON: [facility], , XR CHEST 1V, 01/14/2021, 13:03. FINDINGS: Surgical changes and devices: None. Lungs and pleura: Mild patchy bilateral perihilar opacity. No pleural effusions or pneumothorax. Mediastinum: Mediastinal contours appear normal. Heart size is normal. Bones and chest wall: No suspicious bony lesions. Overlying soft tissues appear unremarkable. IMPRESSION: Mild atypical pneumonia. Dictated by: Aileen López M.D. on 05/14/2021 at 10:03 Approved by: Aileen López M.D. on 05/14/2021 at 10:04 ECG Data Interpretation: 1047 - NSR 58 without ectopy or obvious occlusive findings such as ST segmental elevation/depression. QRS 98, RI 138. QT 486. Largely unchanged from multiple priors MDM Narrative Medical decision making narrative: Patient rest stating comfortably, not septic and in no sign of respiratory distress. Though she does have some chest pain it is reproducible, sharp and stabbing and associated with cough. Her EKG from the clinic showed a few PVCs with no signs of ischemia. EKG is compared to multiple old and no new findings are found. Chest x-ray, history and physical exam are consistent with atypical pneumonia. Discharge Plan Departure Patient Disposition: Home Clinical Impression: Atypical pneumonia Asthma exacerbation Qualifiers: Asthma severity: moderate Asthma persistence: unspecified Qualified Code(s): J45.901 - Unspecified asthma with (acute) exacerbation Instructions: Asthma -- Adult, Atypical Pneumonia Activity Restrictions/Additional Instructions: *You have been diagnosed with [atypical pneumonia and asthma exacerbation] *What to do: *Please continue to take your regular medications as directed. [x ] New medication prescriptions sent to your pharmacy: [[facility] in [place] ] [ ] New medication written as a paper prescription [ ] No new medications given *Please follow up with your primary care provider in 2-3 days, call for an appointment. Let them know you were seen in the Emergency Department and that we ask that you be seen in follow up. We will electronically transmit a record of today's note if your PCP is in our system *If you do not have a primary care provider please contact the [facility] Resource line at [phone]. They will ask some questions about your medical history and help get you set up with a doctor in the community. *Return to Emergency Department if you should have any new, worsening or concerning symptoms, such as [fever greater than 101 F, shaking chills, worsening pain, persistent vomiting or other bothersome symptoms] Prescriptions: New prednisone 10 mg tablet See Rx Instructions .ROUTE .COMPLEX Qty: 30 RF: 0 benzonatate [Tessalon Perles] 100 mg capsule 100 mg PO TID PRN (Reason: cough) Qty: 14 RF: 0 doxycycline hyclate 100 mg tablet 100 mg PO BID Qty: 20 RF: 0 No Action atorvastatin 10 mg Tablet 10 mg PO DAILY RF: 0 hydrocodone-acetaminophen 5-325 mg Tablet 1 - 2 tab PO Q4-6H PRN (Reason: pain) RF: 0 diltiazem HCl 240 mg Capsule,Extended Release 24 Hr 240 mg PO DAILY RF: 0 fexofenadine [Nallely Allergy] 180 mg Tablet 180 mg PO DAILY RF: 0 hydrochlorothiazide 12.5 mg Capsule 12.5 mg PO DAILY RF: 0 scopolamine base 1 mg over 3 days Patch 3 Day 1 patch TRANSDERMAL Q3D PRN (Reason: Nausea) RF: 0 albuterol sulfate [ProAir HFA] 90 mcg/actuation Hfa Aerosol Inhaler 1 puff INHALATION Q4-6H PRN (Reason: SOB) RF: 0 fluticasone propionate [Flonase Allergy Relief] 50 mcg/actuation [place],Suspension 1 spray INTRANASAL DAILY RF: 0 Referrals: Sandy Powell PA-C [Primary Care Provider] -
[2021-05-14 11:17] LABS: COVID19 -Nasal RAPID Negative (Negative)
[2021-05-14] MEDS: ALBUTEROL/IPRATROPIUM 3 ML AMPUL INH (11:35)
[2021-05-14] MEDS: predniSONE 20 MG TABLET 60 MG PO (11:35)
[2021-05-14 11:51] VITALS: BP 143/60; PULSE 60; RESP 17; O2SAT 96
--- NOTE | 2021-05-14 11:53 | PC.NURSE ---
amarjit reports feeling better after duo neb. patient demonstrated three deep breaths with clear lower and upper breath sounds. patient able to produce notebly less forcefull cough with deep breaths. reports having nebs and albuterol at home.
--- OUTSIDE RECORDS SUMMARY | 2021-07-06 07:55 | XMS_ITS | Referral Summary ---
:1960 Author Organization [facility] Address [address] [place] [id number] Care Team Providers Name Role Phone Andre Primary Care Provider Reason for Referral Consultation (Routine) - Authorized Specialty Diagnoses / Procedures Referred By Contact Refer red To Contact Diagnoses Moderate persistent asthma without complication Darron Pang MD [facility] Procedures Complete PFT with DLCO [address] [place] [address] Phone: Referral ID Status Reason Start Date Expiration Date Visits V isits Requested Authorized [id number] Authorized 07/04/2021 06/29/2022 1 1 Diagnostic Imaging (Routine) - Closed Specialty Diagnoses / Procedures Referred By Contact Refer red To Contact Radiology Diagnoses Moderate persistent asthma without complication Darron Pang MD Procedures XR CHEST 2 VIEWS [address] [place], [place] [address] Referral ID Status Reason Start Date Expiration Date Visits V isits Requested Authorized [id number] Closed Specialty 07/04/2021 06/29/2022 1 1 Services Required Reason for Visit Reason Comments Asthma Consultation (Routine) - Authorized Specialty Diagnoses / Procedures Referred By Contact Refer red To Contact Pulmonology Diagnoses Moderate persistent asthma with (acute) exacerbation [facility] [address] [employer] [place] [id number] Phone: Fax: Referral ID Status Reason Start Date Expiration Date Visits V isits Requested Authorized [id number] Authorized 05/18/2021 05/18/2022 6 6 Encounter Details Date Type Department Care Team Description 07/04/2021 Office Visit Merged With [facility] Mayela Pang per [facility] Pulmonology MD Darron asthma without [place] [address] complication (Primary [address]) [place] [id number] Allergies No known active allergiesdocumented as of this encounter (statuses as of 07/05/2021) Medications Medication Sig Dispensed Refills Start Date End Date Status atorvastatin (LIPITOR) 0 04/05/2021 Active 10 mg tablet diltiazem CD (CARDIZEM 0 04/05/2021 Active CD) 240 mg 24 hr capsule hydroCHLOROthiazide Take 25 mg by 0 05/07/2021 Active (HYDRODIURIL) 25 mg mouth every tablet morning losartan (COZAAR) 100 mg Take 100 mg by 0 06/04/2021 Active tablet mouth daily for high blood pressure omeprazole (PriLOSEC) 20 0 04/10/2021 Active mg capsule fexofenadine (ALBARO) Take 100 mg by 0 Active 60 mg tablet mouth daily fluticasone propionate Administer 1 0 Active (FLONASE) 50 spray into each mcg/actuation nasal nostril daily spray mometasone-formoterol Inhale 2 puffs 2 0 Active (DULERA 200) 200-5 (two) times a day mcg/actuation inhaler Rinse mouth with water after use to reduce aftertaste and incidence of candidiasis. Do not swallow. albuterol HFA (ProAir) Inhale 2 puffs 0 Active 90 mcg/actuation inhaler every 6 (six) hours as needed for wheezing 90mcg as needed ipratropium-albuteroL Take 3 mL by 0 Active (DUO-NEB) 0.5-2.5 mg/3 nebulization mL nebulizer solution every 6 (six) hours .5/3mg as needed montelukast (SINGULAIR) Take 1 tablet (10 30 tablet 11 07/04/20 21 Active 10 mg tablet mg total) by 2 mouth nightly documented as of this encounter (statuses as of 07/05/2021) Active Problems No known active problemsdocumented as of this encounter (statuses as of 07/05/2021) Social History Tobacco Use Types Packs/Day Years Used Date Never Smoker Smokeless Tobacco: Never Used Alcohol Use Standard Drinks/Week Comments Not Currently 0 (1 standard drink = 0.6 oz pure alcoho l) Sex Assigned at Date Recorded Female 06/29/2021 8:35 AM PDT Job Start Date Occupation Industry Not on file Not on file Not on file documented as of this encounter Last Filed Vital Signs Vital Sign Reading Time Taken Comments Blood Pressure 111/75 07/04/2021 1:17 PM PDT Pulse 72 07/04/2021 1:17 PM PDT Temperature - - Respiratory Rate - - Oxygen Saturation 96% 07/04/2021 1:17 PM PDT Inhaled Oxygen Concentration - - Weight 70 kg (154 lb 6.4 oz) 07/04/2021 1:17 PM PDT Height 149.9 cm (4' 11) 07/04/2021 1:17 PM PDT Body Mass Index 31.19 07/04/2021 1:17 PM PDT documented in this encounter Progress Notes Darron Pang MD - 07/04/2021 1:20 PM PDT You need blood work and CXR today. You will be scheduled for PFTs. Will call you with lab results and to determine best therapy options. arron Pang MD - 07/04/2021 1:20 PM PDT Subjective Patient ID: Winnie Calix is a 60 y.o. female that had concerns including Asthma. HPI The patient is a pleasant 60-year woman with being evaluated for asthma. She was previously followed by Dr. Silva at [facility]. The patient reports being diagnosed with asthma some 14 years ago and initially did well but then was having recurrent episodes of bronchitis and asthma ex acerbations. She reports having significant flareups 2-3 times per year on each occasion needs to use prednisone up to 2 weeks at that time. The flareups can be associated with seasonal allergies or URI symptoms. She reports having pneumonias in the past and was receiving antibiotic therapy. She has no history of childhood asthma. She served in the [employer] and was in the [employer]. She reports seasonal allergies and had allergy testing in the past reports allergies to cats and birch trees. She has never received any specific allergy shots or immunotherapy. She is currently using Dulera twice a day and albuterol as needed usually 2 or 3 times per day. She has no history of smoking. No sinus disease. Reports history of reflux which is well controlled. History reviewed. No pertinent past medical history. History reviewed. No pertinent surgical history. History reviewed. No pertinent family history. Social History Socioeconomic History ??? Marital status: Spouse name: Not on file ??? Number of children: Not on file ??? Years of education: Not on file ??? Highest education level: Not on file Tobacco Use ??? Smoking status: Never Smoker ??? Smokeless tobacco: Never Used Substance and Sexual Activity ??? Alcohol use: Not Currently ??? Drug use: Never No Known Allergies Current Medication List Sig albuterol HFA (ProAir) 90 mcg/actuation inhaler Inhale 2 puffs every 6 (six) hours as needed for wheezing 90mcg as needed atorvastatin (LIPITOR) 10 mg tablet diltiazem CD (CARDIZEM CD) 240 mg 24 hr capsule fexofenadine (ALBARO) 60 mg tablet Take 100 mg by mouth daily fluticasone propionate (FLONASE) 50 mcg/actuation nasal spray Administer 1 spray into each nostril daily hydroCHLOROthiazide (HYDRODIURIL) 25 mg tablet Take 25 mg by mouth every morning ipratropium-albuteroL (DUO-NEB) 0.5-2.5 mg/3 mL nebulizer solution Take 3 mL by nebulization every 6 (six) hours .5/3mg as needed losartan (COZAAR) 100 mg tablet Take 100 mg by mouth daily for high blood pressure mometasone-formoterol (DULERA 200) 200-5 mcg/actuation inhaler Inhale 2 puffs 2 (two) times a day Rinse mouth with water after use to reduce aftertaste and incidence of candidiasis. Do not swallow. omeprazole (PriLOSEC) 20 mg capsule montelukast (SINGULAIR) 10 mg tablet Take 1 tablet (10 mg total) by mouth nightly Review of Systems Constitutional: Negative. HENT: Negative. Eyes: Negative. Respiratory: Positive for shortness of breath. Cardiovascular: Negative. Gastrointestinal: Negative. Endocrine: Negative. Genitourinary: Negative. Musculoskeletal: Negative. Skin: Negative. Allergic/Immunologic: Negative. Neurological: Negative. Hematological: Negative. Psychiatric/Behavioral: Negative. Objective BP 111/75 (BP Location: Left arm, Patient Position: Sitting) Pulse 72 Ht 1.499 m Wt 70 kg SpO2 96% BMI 31.19 kg/m?? Physical Exam Vitals reviewed. HENT: Mouth/Throat: Pharynx: Oropharynx is clear. Eyes: Conjunctiva/sclera: Conjunctivae normal. Cardiovascular: Rate and Rhythm: Normal rate and regular rhythm. Heart sounds: No murmur heard. Pulmonary: Effort: Pulmonary effort is normal. Breath sounds: Normal breath sounds. No wheezing or rhonchi. Musculoskeletal: Right lower leg: No edema. Neurological: Mental Status: She is alert and oriented to person, place, and time. Psychiatric: Behavior: Behavior normal. No results found for this or any previous visit (from the past 672 hour(s)). There is no problem list on file for this patient. Assessment/Plan Diagnoses and all orders for this visit: Moderate persistent asthma without complication - Complete blood count with diff; Future - Allergens w/Total IgE Area 17; Future - XR CHEST 2 VIEWS; Future - Complete PFT with DLCO; Future Other orders - montelukast (SINGULAIR) 10 mg tablet; Take 1 tablet (10 mg total) by mouth nightly Assessment/Plan Comments: This is a 60-year-old woman with history of asthma for the last 14 years with relatively frequent atleast 2-3 times per year exacerbations. Discussed the pathophysiology of asthma and contributing factors as well as therapy options. Please currently on inhaled corticosteroids and long-acting beta agonist. She has a nebulizer at home for rescue. Would recommend addition of Singulair 10 mg daily.We discussed potential side effects. Furthermore patient may be a candidate for immunotherapy. At this time would recommend any chest x-ray, IgE levels with allergy panel and cell counts with eosinophil counts. Depending on results would consider immunotherapy. Also will obtain pulmonary function test to assess the degree of airflow limitation. Patient follow-up with me soon. I will discuss results of laboratory data with her once it is available. All questions were answered and she was appreciative. Electronically signed by Darron Pang MD 07/04/2021 1:53 PM documented in this encounter Plan of Treatment Pending Results Name Type Priority Associated Diagnoses Date/Ti me Allergens w/Total IgE Lab Routine Moderate persistent asthma 07/04/2021 1:58 PM Area 17 without complication PDT Scheduled Orders Name Type Priority Associated Diagnoses Order S chedule Allergens w/Total IgE Lab Routine Moderate persistent 1 Occurrences starting Area 17 asthma without 07/04/2021 un til complication 07/04/2022 Complete PFT with DLCO PFT Routine Moderate persisten t 1 Occurrences starting asthma without 07/04/2021 un til complication 07/04/2022 documented as of this encounter Results XR CHEST 2 VIEWS (07/04/2021 2:07 PM PDT) Anatomical Region Laterality Modality Body N/A Radiographic Imaging Specimen [facility] - 07/04/2021 2:24 [place]. [address] PATIENT NAME: WINNIE CALIX : 1960 GENDER: F EXAM DATE: 07/04/2021 ?? 14:01 ORDERED FROM: [id number] ORDERING PHYSICIAN: DARRON PANG CC: ??-- ??- ??- ??- CONTRAST: ? READING STATION ID: [id number] mGy: PROCEDURE: ??XR CHEST 2 VIEWS INDICATIONS: ??asthma and recent pneumon ia TECHNIQUE: ??2 views of the chest were a cquired. ?? COMPARISON: ??Outside Film, CT, CT ANGIO CHEST, 12/11/2019, 18:46. ??Outside Film, CR, XR CHEST 2 VIEWS, 12/06/2019, 14:39. FINDINGS: ?? Surgical changes and devices: ??None. ?? Lungs and pleura: ??Lungs are clear. ??N o pleural effusions or pneumothorax. ?? Mediastinum: ??Mediastinal contours are normal. ??Heart size is normal. ?? Bones and chest wall: ??No suspicious mir ny abnormalities. ??Soft tissues appear unremarkable. ?? IMPRESSION: ??No acute cardiopulmonary p athology. Reviewed by: Radhames Lim M.D. on 07/04/2021 at 14:21 ? Approved by: Radhames Lim M.D. on 07/04/2021 at 14:23 ? Procedure Note Radhames Lim MD - 07/04/2021 [place]. [address] PATIENT NAME: WINNIE CALIX : 1960 GENDER: F EXAM DATE: 07/04/2021 14:01 ORDERED FROM: [facility] ORDERING PHYSICIAN: DARRON PANG CC: -- - - - CONTRAST: READING STATION ID: [id number] mGy: PROCEDURE: XR CHEST 2 VIEWS INDICATIONS: asthma and recent pneumoni a TECHNIQUE: 2 views of the chest were ac quired. COMPARISON: Outside Film, CT, CT ANGIO CHEST, 12/11/2019, 18:46. Outside Film, CR, XR CHEST 2 VIEWS, 12/06/2019, 14:39. FINDINGS: Surgical changes and devices: None. Lungs and pleura: Lungs are clear. No pleural effusions or pneumothorax. Mediastinum: Mediastinal contours are n ormal. Heart size is normal. Bones and chest wall: No suspicious bon y abnormalities. Soft tissues appear unremarkable. IMPRESSION: No acute cardiopulmonary pa thology. Reviewed by: Radhames Lim M.D. on 07/04/2021 at 14:21 Approved by: Radhames Lim M.D. on 07/04/2021 at 14:23 Performing Organization Address City/State/ZIP Code [facility] [address] [place] [id number] documented in this encounter Visit Diagnoses Diagnosis Moderate persistent asthma without compl ication - Primary Moderate persistent asthma without compl ication documented in this encounter Insurance Payer Benefit Plan Subscriber ID Effective Dates Phone Address Type / Group PREMERA PREMERA MARQUISE [id number] 2021-Presen [address] [place] [address] [place] FAMILY [place] FAMILY [id number] 2020-Presen [phone] [facility] [address] [place] [address] documented as of this encounter Advance Directives Documents on File Type Date Recorded Patient [employer] [place] Explanati on Advance Directives and Living Will Care Teams Political Reporter Relationship Specialty Start Date End Date Sandy Powell PCP - General Physician Manager Home 05/31/21 [address] [place] [id number] documented as of this encounter
== END 2021-05-14 12:04 | disposition home or self-care (01) ==
PROVIDERS: Emergency Provider Emergency Medicine; PCP Physician Assistant Medical
DX: J18.9 Pneumonia, unspecified organism (principal); J45.901 Unspecified asthma with (acute) exacerbation; R05 Cough; Z20.822 Contact with and (suspected) exposure to COVID-19
CPT/HCPCS: 71045; 87635; 93005; 99284; C9803

== ENCOUNTER → 2021-07-06 16:18 | Outpatient (CLI) | payer BC, OTHER, SELFPAY ==
[2021-07-06 16:58] LABS: COVID19 -Nasal RAPID Negative (Negative)
== END ==
PROVIDERS: PCP Physician Assistant Medical; Referring Provider Internal Medicine; Visit Provider Internal Medicine
DX: Z20.822 Contact with and (suspected) exposure to COVID-19 (principal)
CPT/HCPCS: 87635; C9803

== ENCOUNTER → 2021-07-07 06:49 | Outpatient (CLI) | payer BC, OTHER, SELFPAY ==
--- NOTE | 2021-07-13 09:42 | PM.PFT.1 ---
Pulmonary Function Test Referral & Results Date Patient Seen: 07/07/21 Requesting provider: Alvarado Dunne Indication: Asthma Results: The spirometry demonstrates an FVC of 2.70 L which is 91% of predicted. The FEV1 was measured at 2.42 L which is 106% of predicted. The FEV1/FVC ratio was 90 which is 117% of predicted. Following the administration of bronchodilator there was no appreciable change to above normal numbers Lung volumes show an SVC of 2.78 L which is 92% of predicted. The diffusing capacity was measured at 20.25 which is 125% of predicted. The maximum voluntary ventilation was minimally reduced Interpretation: This study demonstrates normal spirometry and diffusing capacity that is somewhat greater than normal. Elevated diffusing capacity is consistent with a diagnosis of asthma Clinical correlation suggested
== END ==
PROVIDERS: PCP Physician Assistant Medical; Referring Provider Internal Medicine Critical Care Medicine; Visit Provider Internal Medicine Critical Care Medicine
DX: J45.40 Moderate persistent asthma, uncomplicated (principal)
CPT/HCPCS: 94060; 94726; 94729

== ENCOUNTER 2022-04-08 10:51 | Emergency (ER) | payer BC, OTHER, SELFPAY ==
[2022-04-08] VITALS (9 sets, daily range): BP systolic 132–141; BP diastolic 67–102; PULSE 58–65; RESP 18–24; TEMP 36.4; O2SAT 94–98; BMI 31.3
--- NOTE | 2022-04-08 11:09 | DI.RAD.S_ITS ---
PROCEDURE: XR CHEST 1V INDICATIONS: Chest pain TECHNIQUE: One view of the chest was acquired. COMPARISON: [facility], CR, XR CHEST 1V, 05/14/2021, 10:55. FINDINGS: Surgical changes and devices: None. Lungs and pleura: Lungs are clear. No pleural effusions or pneumothorax. Mediastinum: Mediastinal contours appear normal. Heart size is normal. Bones and chest wall: No suspicious bony lesions. Overlying soft tissues appear unremarkable. IMPRESSION: No acute cardiopulmonary process demonstrated radiographically. Dictated by: Alli Kohler M.D. on 04/08/2022 at 11:28 Approved by: Alli Kohler M.D. on 04/08/2022 at 11:28
[2022-04-08 11:33] LABS: Hematocrit 42.1 % (36-46); Hemoglobin 13.9 g/dL (12.0-16.0); Mean Corpuscular HGB Conc 33.1 % (30-36); Mean Corpuscular Volume 78.6 fL (80-100); Platelet Count 263 X10^3/uL (150-400); Red Blood Cell Count 5.36 X10^6/uL (4.0-5.2); Red Cell Distribution Width 15.6 % (11.6-14.8); White Blood Cell Count 13.2 X10^3/uL (4.5-11.0)
[2022-04-08 11:43] LABS: Add Manual Diff / Slide Review YES; Alanine Aminotransferase 36 IU/L (<35); Albumin 4.6 g/dL (3.5-5.0); Albumin Globulin Ratio 1.5 (1.0-2.8); Alkaline Phosphatase 111 U/L (38-126); Aspartate Aminotransferase 26 IU/L (14-36); BUN Creatinine Ratio 20.2 (6-22); Bilirubin Total 0.9 mg/dL (0.2-1.3); Blood Urea Nitrogen 17 mg/dL (7-17); Carbon Dioxide 27 mmol/L (22-32); Chloride 105 mmol/L (98-107); Creatine Kinase 55 U/L (30-135); Estimated Glomerular Filt Rate > 60 mL/min (>60); Globulin 3.1 g/dL (1.7-4.1); Glucose 122 mg/dL (70-100); HEMOLYSIS < 15 (0-50); Lipase 63 U/L (23-300); Potassium 3.6 mmol/L (3.4-5.1); Sodium 142 mmol/L (137-145); Total Protein 7.7 g/dL (6.3-8.2)
[2022-04-08 11:55] LABS: Troponin I < 0.012 ng/mL (0.01-0.034)
--- NOTE | 2022-04-08 12:02 | ED_ITS ---
HPI - Chest Pain General Chief Complaint: Chest Pain Stated Complaint: [facility] by [facility] Time Seen by Provider: 04/08/22 11:14 Source: patient Mode of arrival: Ambulatory Limitations: no limitations History of Present Illness HPI narrative: Patient is a 61-year-old female who yesterday afternoon started to have left- sided chest discomfort it continued all afternoon and evening. She woke up this morning with the discomfort and it has continued since then. She went to an outside walk-in clinic that sent her to the emergency department because of a ?abnormal EKG ?this EKG is not available for review. Patient denies shortness of breath. No skin rashes. It is not worse when she moves her left arm but she can reproduce it with touching the left side of her chest. It is focal in the front of her chest. No cough. No fevers. Related Data Home Medications Medication Instructions Recorded Confirmed albuterol sulfate 90 mcg/actuation 1 puff inhalation Q4-6H PRN SOB 04/16/18 04/26/18 aerosol inhaler (ProAir HFA) atorvastatin 10 mg tablet 10 mg PO DAILY 04/16/18 04/26/18 diltiazem HCl 240 mg capsule,24 240 mg PO DAILY 04/16/18 04/26/18 hr,extended release fexofenadine 180 mg tablet 180 mg PO DAILY 04/16/18 04/26/18 (Nallely Allergy) fluticasone propionate 50 1 spray intranasal DAILY 04/16/18 04/26/18 mcg/actuation nasal spray,suspension (Flonase Allergy Relief) hydrochlorothiazide 12.5 mg capsule 12.5 mg PO DAILY 04/16/18 04/26/18 hydrocodone 5 mg-acetaminophen 325 1 - 2 tab PO Q4-6H PRN pain 04/16/18 04/16/18 mg tablet scopolamine base 1 mg over 3 days 1 patch transdermal Q3D PRN Nausea 04/16/18 04/26/18 transdermal patch Previous Rx's Medication Instructions Recorded benzonatate 100 mg capsule 100 mg PO TID PRN cough #14 caps 05/14/21 (Tesnette Chávez) doxycycline hyclate 100 mg tablet 100 mg PO BID #20 tabs 05/14/21 prednisone 10 mg tablet See Rx Instructions .Route 05/14/21 .COMPLEX #30 tabs Allergies Allergy/AdvReac Type Severity Reaction Status Date / Time No Known Drug Allergies Allergy Verified 04/08/22 11:08 Review of Systems Constitutional Constitutional: Denies fever(s) and Denies headache(s) ENT Ears, Nose, Mouth, and Throat: Denies headache(s) Cardiovascular Cardiovascular: Reports chest pain, Denies rapid heart rate, Denies lightheadedness and Denies dyspnea Respiratory Respiratory: Denies cough and Denies dyspnea Gastrointestinal Gastrointestinal: Denies abdominal pain, Denies nausea and Denies vomiting Musculoskeletal Musculoskeletal: Reports system reviewed and no additional complaints, except as documented Integumentary/Breasts Skin/Breast: Reports system reviewed and no additional complaints, except as documented Neurologic Neurologic: Denies headache(s) Hematologic/Lymphatic On Anticoagulants: No Patient History Medical History DVT (deep vein thrombosis) in High cholesterol HTN (hypertension) Hypothyroid Left wrist fracture Osteoarthritis Surgical History History of arthroscopic knee surgery History of tonsillectomy and adenoidectomy Hx of cholecystectomy Social History household members: spouse Smoking Status: Never smoker alcohol intake: current Smoking Status: Never smoker Substance Use Type: does not use Exam Initial Vital Signs Initial Vital Signs: Vital Signs Temperature 97.5 F L 04/08/22 11:04 Pulse Rate 61 04/08/22 11:04 Respiratory Rate 20 04/08/22 11:04 Blood Pressure 138/67 04/08/22 11:04 Pulse Oximetry 98 04/08/22 11:04 Oxygen Delivery Method 04/08/22 11:04 Const General: cooperative, comfortable and well developed HENMT Head: normal to inspection and normocephalic Mouth: oral mucosae normal Chest Chest: tenderness (Left-sided reproducible tenderness right next to sternum.) Resp Effort & Inspection: normal respiratory effort Auscultation: clear to auscultation bilaterally Cardio Rate: regular rate GI Inspection: normal to inspection Skin General: no rashes or lesions noted Neuro General: patient alert, patient awake, patient oriented x3 and moves all extremities Extrem General: normal to inspection and capillary refill normal Psych Appearance: grossly normal and well kempt Course Orders Ordered: ED Orders 04/08/22 11:09 XR chest 1V Stat EKG-12 Lead Stat 04/08/22 11:22 Complete Blood Count AUTO DIFF Stat Comprehensive Metabolic Panel Stat Lipase Stat Magnesium Stat Troponin & CK Cardiac Panel Stat Vital Signs Vital signs: Vital Signs - 8 hr 04/08/22 11:04 04/08/22 11:13 04/08/22 11:16 Temperature 97.5 F L Pulse Rate 61 65 Respiratory Rate 20 Blood Pressure 138/67 135/102 H Pulse Oximetry 98 94 Oxygen Delivery Method Room Air 04/08/22 11:16 04/08/22 11:30 04/08/22 12:00 Temperature Pulse Rate 58 L 62 59 L Respiratory Rate 22 22 24 Blood Pressure Pulse Oximetry 95 95 95 Oxygen Delivery Method 04/08/22 12:25 04/08/22 12:25 04/08/22 12:30 Temperature Pulse Rate 60 61 Respiratory Rate 24 23 Blood Pressure 132/69 Pulse Oximetry 95 94 Oxygen Delivery Method 04/08/22 12:31 04/08/22 12:31 04/08/22 12:59 Temperature Pulse Rate 58 L 61 Respiratory Rate 20 18 Blood Pressure 141/67 H 141/67 H Pulse Oximetry 95 98 Oxygen Delivery Method MDM - Chest Pain Lab Data Attestation: I reviewed the patient's lab results. Result diagrams: 04/08/22 11:22 04/08/22 11:22 Labs: Lab Results 04/08/22 04/08/22 Range/Units 11:22 11:22 WBC 13.2 H (4.5-11.0) X10^3/uL RBC 5.36 H (4.0-5.2) X10^6/uL Hgb 13.9 (12.0-16.0) g/dL Hct 42.1 (36-46) % MCV 78.6 L (80-100) fL MCH 26.0 (26-34) PG MCHC 33.1 (30-36) % RDW 15.6 H (11.6-14.8) % Plt Count 263 (150-400) X10^3/uL Neut % (Auto) Not Reportable Lymph % (Auto) Not Reportable [place] % (Auto) Not Reportable Eos % (Auto) Not Reportable Baso % (Auto) Not Reportable Lymph # (Auto) Not Reportable [place] # (Auto) Not Reportable Baso # (Auto) Not Reportable Total Counted 100 Seg Neutrophils % 87.0 H (38-70) % Lymphocytes % (Manual) 10.0 L (25-45) % Monocytes % (Manual) 2.0 (2-11) % Metamyelocytes % 1.0 H (-0) % Neutrophils # (Manual) 18251 H (3204-3496) /uL RBC Morphology See below Anisocytosis 1+ H Microcytosis 1+ H Sodium 142 (137-145) mmol/L Potassium 3.6 (3.4-5.1) mmol/L Chloride 105 (98-107) mmol/L Carbon Dioxide 27 (22-32) mmol/L BUN 17 (7-17) mg/dL Creatinine 0.84 (0.52-1.04) mg/dL Estimated GFR > 60 (>60) mL/min BUN/Creatinine Ratio 20.2 (6-22) Glucose 122 H (70-100) mg/dL Calcium 7.0 L (8.4-10.2) mg/dL Magnesium 2.0 (1.6-2.3) mg/dL Total Bilirubin 0.9 (0.2-1.3) mg/dL AST 26 (14-36) IU/L ALT 36 H (<35) IU/L Alkaline Phosphatase 111 (38-126) U/L Total Creatine Kinase 55 (30-135) U/L CK-MB (CK-2) TNP CK-MB (CK-2) Rel Index TNP Troponin I < 0.012 (0.01-0.034) ng/mL Total Protein 7.7 (6.3-8.2) g/dL Albumin 4.6 (3.5-5.0) g/dL Globulin 3.1 (1.7-4.1) g/dL Albumin/Globulin Ratio 1.5 (1.0-2.8) Lipase 63 (23-300) U/L Imaging Data Chest x-ray: Radiologist's Impression: [address] [address] XRay Report Signed Patient: Winnie Real MR#: [id number] : 1960 Acct:[id number] Age/Sex: 61 / F Date of Service: 04/08/22 Loc: ED Accession Number: [id number] ?? Procedure: XR chest 1V Ordering Provider: Chavo Rivera D.O. PROCEDURE:? XR CHEST 1V ? INDICATIONS:? Chest pain ? TECHNIQUE:? One view of the chest was acquired.? ? COMPARISON:? [facility], CR, XR CHEST 1V, 05/14/2021, 10:55. ? FINDINGS:? ? Surgical changes and devices:? None.? ? Lungs and pleura:? Lungs are clear.? No pleural effusions or pneumothorax.? ? Mediastinum:? Mediastinal contours appear normal.? Heart size is normal.? ? Bones and chest wall:? No suspicious bony lesions.? Overlying soft tissues appear unremarkable.? ? IMPRESSION:? No acute cardiopulmonary process demonstrated radiographically. ? ? Dictated by: Alli Kohler M.D. on 04/08/2022 at 11:28 ? ? Approved by: Alli Kohler M.D. on 04/08/2022 at 11:28 ECG Data Interpretation: Sinus rhythm Ventricular rate is 60 Normal axis Normal QRS Normal QTC No ST T wave changes MDM Narrative Medical decision making narrative: Patient has clearly reproducible left-sided parasternal chest discomfort that she states is what she has been having for the past 24 hours. Chest x-ray is unremarkable. EKG is unremarkable. Troponins negative and this was greater than 6 hours after the start of her symptoms. I have a higher suspicion that this is costochondritis. She was diagnosed with COVID a little over 1 week ago and has been coughing. We will hold on further workup for now. No indication for antibiotics. She was given return precautions. She expressed understanding and agreement. Discharge Plan Departure Patient Disposition: Home Clinical Impression: Atypical chest pain Instructions: DI for Costochondritis Activity Restrictions/Additional Instructions: Continue to take all of your medications as directed. Return to the emergency department for any new or worsening symptoms. Prescriptions: No Action prednisone 10 mg tablet See Rx Instructions .ROUTE .COMPLEX Qty: 30 0RF Rx Instructions: Day 1,2,3: 40mg PO Daily Day 4,5,6: 30mg PO Daily Day 7,8,9: 20mg PO Daily Day 10,11,12: 10mg PO Daily #30 benzonatate [Tessalon Perles] 100 mg capsule 100 mg PO TID PRN (Reason: cough) Qty: 14 0RF doxycycline hyclate 100 mg tablet 100 mg PO BID Qty: 20 0RF atorvastatin 10 mg Tablet 10 mg PO DAILY hydrocodone-acetaminophen 5-325 mg Tablet 1 - 2 tab PO Q4-6H PRN (Reason: pain) diltiazem HCl 240 mg Capsule,Extended Release 24 Hr 240 mg PO DAILY fexofenadine [Nallely Allergy] 180 mg Tablet 180 mg PO DAILY hydrochlorothiazide 12.5 mg Capsule 12.5 mg PO DAILY scopolamine base 1 mg over 3 days Patch 3 Day 1 patch TRANSDERMAL Q3D PRN (Reason: Nausea) Label Comments: right ear albuterol sulfate [ProAir HFA] 90 mcg/actuation Hfa Aerosol Inhaler 1 puff INHALATION Q4-6H PRN (Reason: SOB) fluticasone propionate [Flonase Allergy Relief] 50 mcg/actuation [place],Suspension 1 spray INTRANASAL DAILY Referrals: Sandy Powell PA-C [Primary Care Provider] - Visit Report Forms: Patient Portal/API
[2022-04-08 12:16] LABS: Neutrophils Absolute Manual 11484 /uL (3000-5900); Total Cells Counted 100
[2022-04-08 12:17] LABS: Anisocytosis 1+; Microcytosis 1+
== END 2022-04-08 13:07 | disposition home or self-care (01) ==
PROVIDERS: Emergency Provider Emergency Medicine; PCP Physician Assistant Medical
DX: R07.89 Other chest pain (principal)
CPT/HCPCS: 71045; 80053; 82550; 83690; 83735; 84484; 85007; 85025; 93005; 99283; 99284

== ENCOUNTER → 2022-06-21 13:42 | Outpatient (CLI) | payer BC, OTHER, SELFPAY ==
--- NOTE | 2022-06-21 13:44 | DI.MG.S_ITS ---
BILATERAL DIGITAL SCREENING MAMMOGRAM 3D/2D WITH CAD: 06/21/2022 CLINICAL: Routine screening. Family history of breast cancer. Comparison is made to exams dated: 03/19/2021 mammogram - [facility], 01/10/2019 mammogram, and 10/11/2016 mammogram - [facility]. There are scattered areas of fibroglandular density in both breasts (category b / 25%-50% glandular tissue). Current study was also evaluated with a Computer Aided Detection (CAD) system. No significant masses, calcifications, or other findings are seen in either breast. There has been no significant interval change. IMPRESSION: NEGATIVE There is no mammographic evidence of malignancy. A 1 year screening mammogram is recommended. Based on the Tyrer Cuzick model (a risk assessment model) the patient's lifetime risk is 10.3% and her 10 year risk is 4.0%. According to the ACR, ACS, and NCCN guidelines, an annual breast MRI exam along with mammogram is recommended if the patient's lifetime risk is 20% or greater. This exam was interpreted at Station ID: [id number]. NOTE: For mammograms, a report in lay terms will be sent to the patient. Approximately 15% of breast malignancies will not be visualized mammographically. In the management of a palpable breast mass, a negative mammogram must not discourage biopsy of a clinically suspicious lesion. Electronically Signed By: Yeison barrera/jeanne:06/21/2022 15:57:09 letter sent: Normal Exam ACR BI-RADS Category 1: Negative 3341F
== END ==
PROVIDERS: PCP Physician Assistant Medical; Referring Provider Physician Assistant Medical; Visit Provider Physician Assistant Medical
DX: Z12.31 Encounter for screening mammogram for malignant neoplasm of breast (principal); Z80.3 Family history of malignant neoplasm of breast
CPT/HCPCS: 77063; 77067

== ENCOUNTER → 2022-12-11 15:39 | Outpatient (CLI) | payer BC, OTHER, SELFPAY ==
[2022-12-11 16:05] LABS: Add Manual Diff / Slide Review NO; Basophils Absolute Auto 0 /uL (0-100); Basophils Percent Auto 0.4 % (0-2); Eosinophils Absolute Auto 400 /uL (0-450); Eosinophils Percent Auto 3.9 % (2-4); Hematocrit 40.5 % (36-46); Hemoglobin 13.7 g/dL (12.0-16.0); Lymphocytes Absolute Auto 2600 /uL (1100-4500); Lymphocytes Percent Auto 27.1 % (25-40); Mean Corpuscular HGB Conc 33.7 % (30-36); Monocytes Absolute Auto 600 /uL (0-900); Monocytes Percent Auto 6.2 % (3-14); Neutrophils Absolute Auto 6000 /uL (1500-7000); Neutrophils Percent Auto 62.4 % (50-75); Platelet Count 268 X10^3/uL (150-400); Red Blood Cell Count 5.07 X10^6/uL (4.0-5.2); Red Cell Distribution Width 14.6 % (11.6-14.8); White Blood Cell Count 9.6 X10^3/uL (4.5-11.0)
[2022-12-11 16:42] LABS: BUN Creatinine Ratio 18.9 (6-22); Blood Urea Nitrogen 14 mg/dL (7-17); Calcium 7.7 mg/dL (8.4-10.2); Carbon Dioxide 25 mmol/L (22-32); Chloride 100 mmol/L (98-107); Estimated Glomerular Filt Rate > 60 mL/min (>60); Glucose 108 mg/dL (80-110); HEMOLYSIS < 15 (0-50); Potassium 3.4 mmol/L (3.4-5.1); Sodium 142 mmol/L (137-145)
[2022-12-11 16:49] LABS: Appearance Urine UA CLEAR; Bilirubin Urine UA NEGATIVE (NEGATIVE); Color Urine UA YELLOW; Glucose Urine UA NEGATIVE (Negative); Ketones Urine UA NEGATIVE (NEGATIVE); Leukocyte Esterase Urine UA TRACE (NEGATIVE); Nitrite Urine UA NEGATIVE (Negative); Occult Blood Urine UA NEGATIVE (Negative); Protein Urine UA NEGATIVE (Negative); Urobilinogen Urine UA 0.2 E.U./dL (0.2)
[2022-12-11 17:04] LABS: RBC Urine None Seen (0-5/HPF); WBC Urine 0-1/HPF (0-5/HPF)
[2022-12-11 17:05] LABS: Bacteria Urine None Seen; Culture Indicated Urine Cult Not Indicated
== END ==
PROVIDERS: PCP Physician Assistant Medical; Referring Provider Orthopaedic Surgery; Visit Provider Orthopaedic Surgery
DX: Z01.818 Encounter for other preprocedural examination (principal); Z01.812 Encounter for preprocedural laboratory examination; N39.0 Urinary tract infection, site not specified
CPT/HCPCS: 36415; 80048; 81001; 85025; 93005

== ENCOUNTER → 2022-12-19 14:55 | Outpatient (CLI) | payer BC, OTHER, SELFPAY ==
--- NOTE | 2022-12-19 | DI.CT.S_ITS ---
PROCEDURE: CT UE LT WO CON INDICATIONS: Primary osteoarthritis, left shoulder TECHNIQUE: Noncontrast 1-1.5 mm thick sections acquired from the acromioclavicular joint to the inferior scapula, with coronal and sagittal reformatting. COMPARISON: Outside Film, CR, XR SHOULDER 2+ VIEWS LEFT, 09/12/2021, 13:43. [facility], CR, XR SHOULDER 2+ VIEWS LEFT, 11/29/2022, 7:47. FINDINGS: Image quality: Excellent. Bones: No acute osseous fracture or dislocation. A metallic anchor is seen in the greater tuberosity related to prior rotator cuff tendon repair. Moderate joint space narrowing is seen at the glenohumeral joint with small marginal osteophytes. There is probable partial ossification of the anterior labrum. No significant glenoid version is seen. Postsurgical changes are seen at the acromioclavicular joint without recurrent narrowing of the supraspinatus outlet. The included left-sided ribs are intact. Soft tissues: No significant glenohumeral effusion. The rotator cuff musculature is normal in bulk. The articular cartilages, labrum, ligaments, and tendons are not well evaluated with standard CT. The included portions of the left lung are clear. IMPRESSION: 1. Moderate glenohumeral osteoarthrosis. 2. Postsurgical changes at the acromioclavicular joint without recurrent narrowing of the supraspinatus outlet. 3. Postsurgical changes from prior rotator cuff tendon repair with a metallic anchor in the greater tuberosity. No signs of chronic recurrent full-thickness rotator cuff tendon tearing, although the tendons are not well evaluated with CT. Approved by: Nba Presley M.D. on 12/20/2022 at 11:47
== END ==
PROVIDERS: PCP Physician Assistant Medical; Referring Provider Orthopaedic Surgery; Visit Provider Orthopaedic Surgery
DX: M19.012 Primary osteoarthritis, left shoulder (principal)
CPT/HCPCS: 73200

== ENCOUNTER 2023-02-01 08:46 | Inpatient (IN) | payer BC, OTHER, SELFPAY ==
[2023-01-12 08:26] VITALS: BMI 32.3
[2023-02-01] VITALS (10 sets, daily range): BP systolic 114–125; BP diastolic 60–76; PULSE 69–79; RESP 14–20; TEMP 36.4–36.8; O2SAT 96–99; BMI 30.7
--- NOTE | 2023-02-01 06:00 | DI.RAD.S_ITS ---
PROCEDURE: XR SHOULDER LT MIN 2V INDICATIONS: postop TECHNIQUE: 1 views of the shoulder were acquired. COMPARISON: None. FINDINGS: Bones: No fractures or dislocations. Postoperative changes of total left shoulder replacement. No suspicious bony lesions. Visualized ribs appear intact. Soft tissues: No suspicious soft tissue calcifications. IMPRESSION: Postoperative changes of left shoulder replacement. Dictated by: Pablito Cash M.D. on 02/01/2023 at 14:27 Approved by: Pablito Cash M.D. on 02/01/2023 at 14:28
[2023-02-01 09:36] LABS: COVID19 -Nasal RAPID Negative (Negative)
[2023-02-01] MEDS: ACETAMINOPHEN 325 MG TABLET 975 MG PO (09:41)
[2023-02-01] MEDS: SCOPOLAMINE 1 PATCH TOP (09:42)
--- NOTE | 2023-02-01 10:28 | PM.PREOP ---
Pre-operative Note Interval Note History & Physical reviewed/Exam performed by Physician: Yes Changes to H&P: No
--- NOTE | 2023-02-01 10:36 | P.HP_ITS ---
History of Present Illness History of Present Illness Date Patient Seen: 02/01/23 Time Patient Seen: 10:36 Chief complaint: Left TSA Narrative: Winnie is a 62-year-old female with previous rotator cuff surgery which has now failed leading to rotator cuff arthropathy. She is undergone many months of nonoperative management, and now is no longer able to sleep through the night due to pain, and she has significant limited range of motion leading to deficits in her activities of daily living and ability to take care of herself. For this reason, we discussed performing a reverse total shoulder arthroplasty which she wished to go forward with. [facility] Medical History (Updated 01/12/23 @ 09:11 by Ariana Benton RN) Arthritis Asthma DVT (deep venous thrombosis) (2017) Easy bruisability High cholesterol History of COVID-19 (2021) HTN (hypertension) Hypothyroid Left wrist fracture Low serum calcium Osteoarthritis Surgical History (Updated 01/12/23 @ 09:09 by Ariana Benton RN) History of arthroscopy of left shoulder (2009) History of arthroscopy of right shoulder (1989) History of orthopedic surgery (04/26/18) History of tonsillectomy and adenoidectomy Hx of cholecystectomy Hx of elbow surgery Social History household members: spouse Smoking Status: Never smoker alcohol intake: current Meds Home Medications and Allergies Home Medications Medication Instructions Recorded Confirmed Type albuterol sulfate 90 mcg/actuation 1 puff inhalation Q4-6H PRN SOB 04/16/18 01/12/23 History aerosol inhaler (ProAir HFA) atorvastatin 10 mg tablet 10 mg PO DAILY 04/16/18 02/01/23 History diltiazem HCl 240 mg capsule,24 240 mg PO BEDTIME 04/16/18 02/01/23 History hr,extended release fexofenadine 180 mg tablet 180 mg PO DAILY 04/16/18 02/01/23 History (Nallely Allergy) fluticasone propionate 50 1 spray intranasal DAILY 04/16/18 02/01/23 History mcg/actuation nasal spray,suspension (Flonase Allergy Relief) hydrochlorothiazide 12.5 mg capsule 25 mg PO DAILY 04/16/18 02/01/23 History benzonatate 100 mg capsule 100 mg PO TID PRN cough #14 caps 05/14/21 01/12/23 Rx (Tesnette Chávez) acetaminophen 500 mg tablet 1,000 mg PO DAILY PRN Pain 01/12/23 01/12/23 History losartan 100 mg tablet 100 mg PO BEDTIME 01/12/23 02/01/23 History mometasone-formoterol HFA 200 2 puff inhalation BID 01/12/23 02/01/23 History mcg-5 mcg/actuation aerosol inhaler (Dulera) montelukast 10 mg tablet 10 mg PO BEDTIME 01/12/23 02/01/23 History naproxen sodium 220 mg capsule 220 mg PO QAM 01/12/23 02/01/23 History (Aleve) omeprazole 20 mg tablet,delayed 20 mg PO BID 01/12/23 02/01/23 History release Allergies Allergy/AdvReac Type Severity Reaction Status Date / Time No Known Drug Allergies Allergy Verified 04/08/22 11:08 Review of Systems Review of Systems ROS: Yes All systems reviewed with the patient and are negative except as otherwise documented Exam Vital Signs (past 8 hours): - 02/01/23 09:32 Temperature 98.2 F Pulse Rate 74 Respiratory Rate 20 Blood Pressure 116/67 Pulse Oximetry 98 Oxygen Delivery Method Room Air Oxygen Delivery Method Room Air Narrative Exam Narrative: HEENT: Head atraumatic eyes anicteric moist mucous membranes Cardiovascular: Palpable peripheral pulses extremities are warm and well perfused Respiratory: Breathing comfortably on room air Psychiatric: Appropriate mood and affect Neuro: No acute deficits Musculoskeletal: Forward elevation 120, external rotation 45, internal rotation belt line all with pain. 4/5 strength in empty can test and resisted external rotation. 2+ radial pulse with brisk capillary refill less than 2 seconds. Sensation intact to light touch in median, radial, ulnar nerve distributions. Objective Labs Labs: Laboratory Results - last 24 hr 02/01/23 09:03 SARS-CoV-2 (PCR) Negative Assessment & Plan Assessment & Plan narrative: Assessment: 62-year-old female with rotator cuff arthropathy and previous rotator cuff repair which has failed Plan: Operative and nonoperative management options were discussed previously in clinic and we again went over the risks and benefits of surgery today in the preoperative holding area. She expressed understanding and wished to go forward with surgery.
--- NOTE | 2023-02-01 11:06 | SUR.PREOP ---
Block start time [1048] . Monitoring initiated and maintained throughout procedure. Oxygen and medications given per anesthesiologist instructions. Patient remained stable throughout procedure, no adverse reactions noted. Block end time [1103].
[2023-02-01] MEDS: TRANEXAMIC ACID 1,000 MG VIAL 1000 MG INJ ×2 (11:15→13:33)
[2023-02-01] MEDS: CEFAZOLIN 2 GM/100 ML PREMIX 100 ML IV (11:15)
[2023-02-01] MEDS: BUPIVACAINE 0.25% (PF) 60 ML, EPINEPHrine 0.3 MG INJ (12:28)
--- NOTE | 2023-02-01 12:31 | SUR.OPER ---
Beach chair with [employer] shoulder positioner. Lower body on padded OR bed. Head in foam padded head cradle, secured with straps. Non-operative arm secured <90 degrees abduction. Pillow under knees. Safety belt at thigh. Cloth tape over blanket over lower legs.
[2023-02-01] MEDS: LACTATED RINGERS 1,000 ML 42 ML IV (12:56)
--- NOTE | 2023-02-01 13:43 | PM.OP.1 ---
Operative Date/Time/Diagnoses Date of procedure: 02/01/23 Time of procedure: 13:43 Pre-op diagnosis: Left rotator cuff arthropathy Post-op diagnosis: same Procedure & Clinicians Procedure: Left reverse total shoulder arthroplasty with autograft wedge augmentation Same procedure as scheduled: Yes Indications: Indications: This is a 62-year-old female who has rotator cuff arthropathy. Symptoms have been present for years, insidious onset. Patient has failed conservative therapy including injections, physical therapy, anti-inflammatories and activity modification. After extensive discussion in clinic, they wished to go forward with surgery. Risks and benefits were described including the risk of infection, bleeding, damage to internal structures including nerves. We also discussed the risk of failure of surgery and the need for revision surgery as well as the risk of anesthesia. The patient expressed understanding with these risks and wished to go forward with surgery. Surgeon: Sammy Richmond Air Hammer Stripper: Janna Arteaga Anesthesia Type: General Operative Notes Findings: Findings: Osteoarthritis of the glenoid and humeral head as well as a defient rotator cuff as noted on preoperative imaging and under direct visualization Closure Type: primary Specimen(s): none sent Prosthetic devices, grafts, tissues, transplants, or devices: Tornier implants Base plate: standard 25 mm, with a bone graft wedge approximately 10?, 7 mm at the thickest portion Glenosphere: Standard 36 mm Stem: Perform 1 Poly: +0 concentric Estimated Blood Loss (mL): 50 Blood products transfused: none Tourniquet time (min): 0 Procedure in detail: Patient was seen in the preoperative holding unit. The correct left shoulder was identified and marked with my initials. Again we discussed the risks and benefits of surgery and they wished to go forward with surgery. The patient was brought back to the operating room and placed supine on the operating table. Smooth endotracheal intubation was performed by anesthesia. All prominences were padded and they were placed into the beach chair position. Intravenous antibiotics were given. The left shoulder was then prepped with the standard sterile preparation and draping. A time-out was then performed in my initials were again identified on the correct shoulder. 1 g of IV tranexamic acid was given. A standard deltopectoral incision was made. Skin flaps were made. The cephalic vein was identified and retracted laterally. This was protected throughout the remainder of the case. Sharp dissection was made along the deltoid, subacromial and subcoracoid space to release adhesions. The conjoined tendon was identified and the axillary nerve was palpated and continuous using the tug test. It was protected throughout the remainder of the case. A brown retractor was placed underneath the deltoid muscle and a darach retractor underneath the conjoint tendon. The anterior circumflex artery and associated veins on the lower border of the subscapularis were identified and tied off using 0-Vicryl. The biceps tendon was identified in the bicipital groove. This was released from its sheath, and taken from its origin on the glenoid and tied into the pectoralis tendon for a solid tenodesis. We then began a subscapularis peel. The subscapularis was tagged with an Ethibond suture. A 360 degree circumferential release of the subscapularis was performed with protection of the axillary nerve. The coracohumeral ligament was released at the base of the coracoid. The coracoacromial ligament was left intact. The shoulder was then dislocated. Osteophytes were removed using combination of rongeur and osteotome. The rotator cuff was noted to be insufficient. An intramedullary guide was used set at version of 30?. Using an oscillating saw a conservative humeral head cut was made. Impaction reamers were reamed up to a size 1 stem with a built-in angle 135?. A neck protector was placed. Attention was then turned to the glenoid. After retracting the humeral head posteriorly a circumferential release was performed of the capsule with protection of the axillary nerve. The labrum was then released starting at the biceps anchor and going around the rim a small amount of triceps was released from the inferior glenoid. A center guide pin was then placed using the guide, followed by Reamer. After adequate cartilage was removed a bone graft wedge was fashioned on the back table using the previously cut humeral head. The boss was cut into this wedge and partially into the glenoid over the guidewire. The center drill hole was drilled and measured. The base plate was then implanted over the allograft wedge and screwed into place. All 4 holes in the base plate were drilled and measured and screws were placed, 2 of which were in locking fashion (superior and inferior). A 36 standard glenosphere was then selected and screwed into place onto the base plate. Turning back to the humerus, the humeral head was delivered and trialed with a 0 concentric. The arm was taken through range of motion and this was felt to be stable. The trial was then removed and a dilute Betadine wash was then performed with 1 L of sterile saline. Before placing the final implant, drill holes were made in the bicipital groove for the subscapularis repair, and sutures were passed through the drill holes. The final stem was then impacted into the humerus. The shoulder was then reduced and again brought through range of motion and was felt to be stable. The interval was then closed using #2 Ethibond. The subscapularis was then repaired using a modified racking hitch with nice loupes. The deltopectoral interval was then closed with #2 Ethibond. The skin was closed with 2-0 PDS and Monocryl followed by Aquacel dressing. Patient was awoken from anesthesia and brought back to the postoperative recovery unit without issue. They were placed into a sling. Assisting participation: This operation could not have been safely performed (without compromising the technical results or length of the procedure) without the assistance of a skilled surgical scrub technologist. The surgical scrub technologist was medically necessary for proper positioning, retraction and manipulation of instruments, proper exposure, graft prep, and manipulation of tissue. Complications: none Post-operative Condition: stable Disposition: PACU Plan for aftercare: Postoperative instructions: Sling to remain on for 6 weeks. No external rotation past neutral for 6 weeks. Okay for him to come off her shower. Okay to shower over the Aquacel dressing. If any water gets underneath the dressing, remove the dressing. First postoperative visit in 2 weeks.
== END 2023-02-01 15:20 | disposition home or self-care (01) | DRG 483 ==
PROVIDERS: Admitting Provider Orthopaedic Surgery; PCP Physician Assistant Medical; Referring Provider Orthopaedic Surgery; Visit Provider Orthopaedic Surgery
PROC: 0RRK00Z Replacement of Left Shoulder Joint with Reverse Ball and Socket Synthetic Substitute, Open Approach (ICD-10-PCS; CPT 23472; principal; 2023-02-01 10:45)
DX: M19.012 Primary osteoarthritis, left shoulder (principal); Z20.822 Contact with and (suspected) exposure to COVID-19
CPT/HCPCS: 64450; 73030; 87635; C1776; C9803; J0171; J0330; J0690; J1100; J2250; J2405; J2704; J3010

== ENCOUNTER → 2023-06-23 09:58 | Outpatient (CLI) | payer OTHER, SELFPAY ==
--- NOTE | 2023-06-23 | DI.MG.S_ITS ---
BILATERAL DIGITAL SCREENING MAMMOGRAM 3D/2D WITH CAD: 06/23/2023 CLINICAL: Routine screening. Family history of breast cancer. Comparison is made to exams dated: 06/21/2022 mammogram, 03/19/2021 mammogram - [facility], and 01/10/2019 mammogram - [facility]. There are scattered areas of fibroglandular density in both breasts (category b / 25%-50% glandular tissue). Current study was also evaluated with a Computer Aided Detection (CAD) system. No significant masses, calcifications, or other findings are seen in either breast. There has been no significant interval change. IMPRESSION: NEGATIVE There is no mammographic evidence of malignancy. A 1 year screening mammogram is recommended. Based on the Tyrer Cuzick model (a risk assessment model) the patient's lifetime risk is 10.3% and her 10 year risk is 4.2%. According to the ACR, ACS, and NCCN guidelines, an annual breast MRI exam along with mammogram is recommended if the patient's lifetime risk is 20% or greater. This exam was interpreted at Station ID: [id number]. NOTE: For mammograms, a report in lay terms will be sent to the patient. Approximately 15% of breast malignancies will not be visualized mammographically. In the management of a palpable breast mass, a negative mammogram must not discourage biopsy of a clinically suspicious lesion. Electronically Signed By: Wojciech camacho/jeanne:06/25/2023 07:03:30 letter sent: Normal Exam ACR BI-RADS Category 1: Negative [id number]
== END ==
PROVIDERS: PCP Physician Assistant Medical; Referring Provider Physician Assistant Medical; Visit Provider Physician Assistant Medical
DX: Z12.31 Encounter for screening mammogram for malignant neoplasm of breast (principal); Z80.3 Family history of malignant neoplasm of breast
CPT/HCPCS: 77063; 77067

== ENCOUNTER → 2023-11-26 08:04 | Outpatient (CLI) | payer OTHER, SELFPAY | PROVIDERS: PCP Physician Assistant Medical; Referring Provider Internal Medicine Critical Care Medicine; Visit Provider Internal Medicine Critical Care Medicine | DX: R06.02 Shortness of breath (principal) | CPT/HCPCS: 94060; 94726; 94729 ==

== ENCOUNTER → 2024-08-29 16:44 | Outpatient (CLI) | payer OTHER, SELFPAY ==
--- NOTE | 2024-08-29 16:47 | DI.MG.S_ITS ---
BILATERAL DIGITAL SCREENING MAMMOGRAM 3D/2D WITH CAD: 08/29/2024 CLINICAL: Routine screening. Family history of breast cancer. Comparison is made to exams dated: 06/23/2023 mammogram, 06/21/2022 mammogram, and 03/19/2021 mammogram - [facility]. There are scattered areas of fibroglandular density (category b / 25%-50% glandular tissue). Current study was also evaluated with a Computer Aided Detection (CAD) system. No significant masses, calcifications, or other findings are seen in either breast. There has been no significant interval change. IMPRESSION: NEGATIVE There is no mammographic evidence of malignancy. A 1 year screening mammogram is recommended. Based on the Tyrer Cuzick model (a risk assessment model) the patient's lifetime risk is 10.4% and her 10 year risk is 4.4%. According to the ACR, ACS, and NCCN guidelines, an annual breast MRI exam along with mammogram is recommended if the patient's lifetime risk is 20% or greater. This exam was interpreted at Station ID: [id number]. NOTE: For mammograms, a report in lay terms will be sent to the patient. Approximately 15% of breast malignancies will not be visualized mammographically. In the management of a palpable breast mass, a negative mammogram must not discourage biopsy of a clinically suspicious lesion. Electronically Signed By: Wojciech camacho/jeanne:09/01/2024 07:15:47 letter sent: Normal Exam ACR BI-RADS Category 1: Negative
== END ==
PROVIDERS: PCP Physician Assistant Medical; Referring Provider Physician Assistant Medical; Visit Provider Physician Assistant Medical
DX: Z12.31 Encounter for screening mammogram for malignant neoplasm of breast (principal); Z80.3 Family history of malignant neoplasm of breast
CPT/HCPCS: 77063; 77067

== ENCOUNTER → 2025-08-31 14:48 | Outpatient (CLI) | payer OTHER, SELFPAY ==
--- NOTE | 2025-08-31 14:49 | DI.MG.S_ITS ---
MM screening mammo BI: 08/31/2025. BI-RADS: 1 CLINICAL: 64-year old female for bilateral screening mammogram. Tyrer-Cuzick lifetime risk of 4.5%. No personal or first-degree family history of breast cancer. PRIOR EXAMS 08/29/2024, 06/23/2023, 06/21/2022, 04/27/2021, MAMMOGRAPHY TECHNIQUE: 2D and 3D (tomosynthesis) digital mammographic views obtained, with additional images as needed for full coverage. Current study was also evaluated with a Computer Aided Detection (CAD) system. DENSITY A. The breasts are almost entirely fatty. MAMMOGRAPHY FINDINGS Bilateral: No suspicious mass, asymmetry, microcalcification, or other abnormality seen. No significant change from comparison. IMPRESSION: * No evidence of malignancy. RECOMMENDATIONS Bilateral * Annual screening mammography. OVERALL ASSESSMENT CATEGORY BI-RADS-1: Negative. The [employer] recommends annual screening mammography beginning at age 40 for women with average risk of breast cancer. ELECTRONICALLY SIGNED: Digna Suresh M.D. on 09/01/2025 at 11:30:03 AM PT Interpreting Station ID: [id number]
== END ==
LOC: MAMMO 14:49
PROVIDERS: PCP Physician Assistant Medical; Referring Provider Physician Assistant Medical; Visit Provider Physician Assistant Medical
DX: Z12.31 Encounter for screening mammogram for malignant neoplasm of breast (principal); R92.313 Mammographic fatty tissue density, bilateral breasts
CPT/HCPCS: 77063; 77067